=== PATIENT | male | born 1945 | race Caucasian/White ===

== ENCOUNTER 2020-01-07 10:51 | Inpatient (IN) | payer OTHER, MEDICARE, SELFPAY ==
[2020-01-07] VITALS (17 sets, daily range): BP systolic 81–119; BP diastolic 50–84; PULSE 38–123; RESP 12–20; TEMP 35.7–37.1; O2SAT 96–100; BMI 29.0
--- NOTE | 2020-01-07 | ECHO_ITS ---
Patient Info Name: Rolf Taylor Age: 74 years : 1945 Gender: Male Ht: 71 in Wt: 206 lbs BSA: 2.18 m2 HR: 42 bpm BP: 99 / 60 mmHg Heart Rhythm: Bradycardia Technical Quality: Good Exam Date: 01/07/2020 3:29 PM Exam Location: [facility] Pulmonary Patient Status: Inpatient Admit Date: 01/07/2020 Staff Ordering Physician: Shai Cross MD Atmospheric Physicist: Burt Hopkins RDCS Attending Provider: Cisco Melgoza MD Referring Physician: Tay ARTEAGA; Exam Type: CA echo doppler color flow Study Info Indications I48.0 - Paroxysmal atrial fibrillation Complete two-dimensional, color flow and Doppler transthoracic echocardiogram is performed. History/Risk Factors Atrial fibrillation to bradycardia. Summary 1. Left ventricular chamber dimension is normal. 2. Left ventricular systolic function is normal, estimated at 60-65%. 3. There is mildly increased left ventricular wall thickness. 4. The left ventricular diastolic function is normal. 5. The basal inferolateral wall, and mid inferolateral wall are hypokinetic. 6. Left atrial chamber dimension is mildly enlarged. 7. There is mild mitral valve regurgitation. 8. There is mild tricuspid valve regurgitation. 9. There is mild pulmonic regurgitation. Left Ventricle Left ventricular chamber dimension is normal. Left ventricular systolic function is normal, estimated at 60-65%. There is mildly increased left ventricular wall thickness. The left ventricular diastolic function is normal. The basal inferolateral wall, and mid inferolateral wall are hypokinetic. The inferior wall is not visualized. All other graves appear normal. Right Ventricle Right ventricular chamber dimension is normal. Right ventricular systolic function is normal. Left Atria Left atrial chamber dimension is mildly enlarged. Right Atria Right atrial chamber dimension is normal. Atrial Septum Intact interatrial septum visualized by color flow imaging. Aortic Valve The aortic valve is trileaflet. There is mild aortic valve sclerosis. There is no aortic valve stenosis. There is trace aortic valve regurgitation. Pulmonic Valve The pulmonic valve is normal. There is no pulmonic valve stenosis. There is mild pulmonic regurgitation. Mitral Valve The mitral valve has calcified leaflets. There is no mitral valve stenosis. There is mild mitral valve regurgitation. Tricuspid Valve The tricuspid valve leaflets are normal. There is no significant tricuspid valve stenosis. There is mild tricuspid valve regurgitation. No pulmonary hypertension, estimated pulmonary arterial systolic pressure is 26 mmHg. Pericardium/Pleural The pericardium appears normal. There is no pericardial effusion. Inferior Vena Cava Dilated inferior vena cava with >50% collapse upon inspiration consistent with elevated right atrial pressure, 10 mmHg. Aorta The aortic root size at the sinus of Valsalva is normal. The prox ascending aorta size is normal. Left Ventricular Outflow Tract Name Value Normal LVOT 2D LVOT Diameter 2.0 cm LVOT Doppler LVOT Peak Grad
--- NOTE | ~2020-01-07 | XR_ITS ---
EXAMINATION: XR chest 1V portable DATE: 01/07/2020 11:52 INDICATION: Palpitations. TECHNIQUE: A single frontal view of the chest was obtained. COMPARISON: Chest 2 views 10/10/2010, chest CT 01/31/2017 FINDINGS: The chest demonstrates clear lungs without pneumonia, pleural effusion, or pneumothorax. Th e heart size is normal. There are prominent paracardial fat pads. IMPRESSION: 1. No acute cardiopulmonary disease. Reviewed, dictated and finalized at location A.
--- NOTE | 2020-01-07 11:00 | ECG_ITS ---
Measurements Intervals [place] Rate: 129 P: MT: 0 QRS: 36 QRSD: 93 T: 65 QT: 303 QTc: 445 Interpretive Statements ATRIAL FIBRILLATION WITH RAPID VENTRICULAR RESPONSE INCOMPLETE RIGHT BUNDLE BRANCH BLOCK BASELINE ARTIFACT- I, III ABNORMAL ECG Electronically Signed On 01-07-2020 11:03:19 CDT by Bonifacio De Jesus D.O.
[2020-01-07 11:10] LABS: Basophils Absolute Auto 0.1 K/mm3 (0.0-0.1); Basophils Percent Auto 0.6 % (0.2-1.2); Eosinophils Absolute Auto 0.3 K/mm3 (0-0.3); Eosinophils Percent Auto 2.2 % (0-4.4); Hematocrit 49.9 % (42.0-52.0); Hemoglobin 16.4 g/dL (14.0-18.0); Immature Granulocyte Absolute 0.05 K/mm3 (0.00-0.031); Immature Granulocyte Percent A 0.3 % (0-0.5); Lymphocytes Absolute Auto 1.53 K/mm3 (0.9-3.2); Mean Corpuscular HGB Conc 32.9 g/dl (32-36); Mean Corpuscular Hemoglobin 32.2 pg (26-34); Mean Corpuscular Volume 97.8 fl (80-100); Monocytes Percent Auto 6.8 % (2.6-8.5); Neutrophils Absolute Auto 12.2 K/mm3 (1.3-6.7); Neutrophils Percent Auto 80.1 % (45.5-73.1); Platelet Count Result 300 k/mm3 (150-375); Red Cell Distribution Width 13.5 % (11.5-14.5); White Blood Count 15.3 K/mm3 (4.5-10.0)
--- NOTE | 2020-01-07 11:14 | ED.ARRPALP ---
HPI - Arrhythmia/Palpitations General Chief Complaint: Arrhythmia/Palpitations <Mark Galvan PA-C Last Filed: 01/07/20 12:36> Stated Complaint: palpitations <RIGOBERTO Graham Last Filed: 01/07/20 12:36> Time Seen by Provider: 01/07/20 11:05 <RIGOBERTO Graham Last Filed: 01/07/20 12:36> Source: patient <RIGOBERTO Graham Last Filed: 01/07/20 12:36> Mode of arrival: ambulatory <RIGOBERTO Graham Last Filed: 01/07/20 12:36> Limitations: no limitations <RIGOBERTO Graham Last Filed: 01/07/20 12:36> History of Present Illness HPI narrative: Patient is a 74-year-old male who presents with lightheadedness dizziness patient notes that he was up for 2 hours today when he began to have these feelings patient presents with atrial fibrillation denies any history of atrial fibrillation. Patient denies any chest pain. Patient notes that he has been out in the heat off and on over the last several weeks but has been hydrating. Patient notes that he felt fine yesterday and upon waking prior to onset of symptoms. Patient on arrival is in the room in no distress resting comfortably has not taken anything for his symptoms. Patient is followed by primary care and cardiology at [facility]. <Mark Galvan PA-C Last Filed: 01/07/20 12:36> Related Data Home Medications: Home Medications Medication Instructions Recorded Confirmed aspirin [Adult Low Dose Aspirin] 81 mg PO DAILY 01/07/20 atorvastatin [Lipitor] 20 mg PO DAILY 01/07/20 <RIGOBERTO Graham Last Filed: 01/07/20 12:36> Allergies/Adverse Reactions: Allergies Allergy/AdvReac Type Severity Reaction Status Date / Time No Known Allergies Allergy Verified 11/20/17 11:14 <RIGOBERTO Graham Last Filed: 01/07/20 12:36> Review of Systems Review of Systems: All systems reviewed & are unremarkable except as noted in HPI and below <RIGOBERTO Graham Last Filed: 01/07/20 12:36> [facility] Past Medical History Medical History: Medical History (Updated 01/07/20 @ 12:33 by Debbie Saenz MD) Colon cancer Hyperlipidemia <Mark Galvan PA-C - Last Filed: 01/07/20 12:36> Surgical History Surgical History: Surgical History (Updated 01/07/20 @ 11:21 by Mark Galvan PA-C) History of colon resection History of coronary artery stent placement <Mark Galvan PA-C - Last Filed: 01/07/20 12:36> Family History Family History: Family History (Updated 06/24/17 @ 12:01 by DOCTOR UNKNOWN) Sibling Family history of malignant neoplasm of breast in first degree relative Other Family history of cardiovascular disease Family history of coronary artery disease Hypertension <Mark Galvan PA-C - Last Filed: 01/07/20 12:36> Social History Social History: Social History (Updated 01/07/20 @ 11:21 by Mark Galvan PA-C) Smoking status: Current every day smoker Second hand tobacco smoke exposure: Yes Alcohol intake: never <Mark Galvan PA-C - Last Filed: 01/07/20 12:36> Exam Narrative: Exam Narrative: GENERAL: Well-appearing, well-nourished, and in no acute distress. HEAD: Normocephalic, atraumatic. EYES: PERRLA and EOMI. ENT: Nares clear, no rhinorrhea or epistaxis. Mucous membranes moist. Oropharynx without tonsillar hypertrophy exudate or other lesions. NECK: Supple. No adenopathy or masses. No carotid bruits or JVD CHEST: Clear to auscultation. No respiratory distress. No wheezes rales or rhonchi HEART: Irregularly irregular rate and rhythm. No murmur heard. ABDOMEN: Soft, nontender, nondistended, normal active bowel sounds. EXTREMITIES: Normal range of motion. No edema. SKIN: Warm, dry, no rash. NEURO: No focal deficits. Alert and oriented x3. Cranial nerves II through XII grossly intact PSYCH: Normal mood and affect. <Mark Galvan PA-C - Last Filed: 01/07/20 12:36> Course Cour
[2020-01-07] MEDS: SODIUM CHLORIDE 0.9% IV 1,000 ML 999 ML IV CONT (11:18)
[2020-01-07] MEDS: dilTIAZem HCl INJ 25 MG/5 ML VIAL 10 MG IV PUSH (11:18)
[2020-01-07 11:19] LABS: Anion Gap 11.5 mmol/L (7-16); Blood Urea Nitrogen 16 mg/dL (9-20); Calcium 9.2 mg/dL (8.4-10.2); Carbon Dioxide 28 mmol/L (22-30); Chloride 101 mmol/L (98-107); Estimated CRCL calculation 62 ml/min; Estimated Glomerular Filt Rate > 60; Glucose 113 mg/dL (75-110); Potassium 4.5 mmol/L (3.4-5.0); Sodium 136 mmol/L (137-145)
[2020-01-07 11:36] LABS: NT Pro B Type Natriuretic Pept 919 PG/ML (5-100); Troponin I 0.026 ng/mL (0.000-0.034)
--- NOTE | 2020-01-07 12:05 | PC.NURSE ---
After starting diltiazem drip, Pt. heart rate dropped into the 30s-40s, sinus bradycardia. EDP notified. Drip stopped. Placed Pt. on 2L of O2 via nasal cannula per EDP via verbal order readback. Will continue to monitor Pt. heart rate.
--- NOTE | 2020-01-07 14:23 | WPDREHABHP ---
H&P: HPI History of Present Illness Chief complaint: a fib rvr, then bradycardia Narrative: Rolf Taylor is a 74-year-old male with coronary artery disease status post bare metal stent to the right coronary artery in October 2009, hypertension, dyslipidemia, and stage III colon cancer status post partial colectomy and chemotherapy who presented to the emergency department earlier today from home for evaluation of lightheadedness/dizziness. [facility] Past Medical History Medical History (Updated 01/07/20 @ 14:30 by Myrna Hernandes PA-C) Coronary artery disease (~10/2009) Status post bare metal stent to the right coronary artery. Essential hypertension Hyperlipidemia Mild emphysema Noted on prior chest CT. Nephrolithiasis Osteoarthritis Personal history of colon cancer, stage III (~08/2009) Status post right hemicolectomy and chemotherapy. Tuberculosis As a child. Surgical History Surgical History (Updated 01/07/20 @ 14:29 by Myrna Hernandes PA-C) History of coronary artery stent placement (~10/2009) Bare metal stent to right coronary artery. History of right hemicolectomy (~09/2009) History of umbilical hernia repair (~09/2009) Family History Family History Sibling Family history of malignant neoplasm of breast in first degree relative Other Family history of cardiovascular disease Family history of coronary artery disease Hypertension Social History Social History (Updated 01/07/20 @ 14:29 by Myrna Hernandes PA-C) Social History: The patient lives in [place], [place]. Smoking status: Current every day smoker Second hand tobacco smoke exposure: Yes Alcohol intake: never Meds Home Medications and Allergies Home Medications Medication Instructions Recorded Confirmed Type lisinopril 20 See Rx Instructions .ROUTE 10/28/19 Rx mg-hydrochlorothiazide 12.5 mg .COMPLEX #45 tablet tablet aspirin [Adult Low Dose Aspirin] 81 mg PO DAILY 01/07/20 History atorvastatin [Lipitor] 20 mg PO DAILY 01/07/20 History Allergies Allergy/AdvReac Type Severity Reaction Status Date / Time No Known Allergies Allergy Verified 11/20/17 11:14 Vital Signs Vital Signs - 24 hr 01/07/20 11:01 01/07/20 11:07 01/07/20 11:48 Temperature 97.6 F Pulse Rate 123 H 118 H 92 Respiratory Rate 14 Blood Pressure 110/84 107/59 L Pulse Oximetry 96 99 01/07/20 12:00 01/07/20 12:06 01/07/20 12:07 Temperature Pulse Rate 38 L 38 L Respiratory Rate Blood Pressure 119/71 Pulse Oximetry 100 01/07/20 12:45 01/07/20 12:48 Temperature Pulse Rate 55 L 55 L Respiratory Rate 12 Blood Pressure 100/53 L Pulse Oximetry 100 Exam Narrative Exam Narrative: General: HEENT: Normocephalic, atraumatic. PERRL, EOMI. Sclerae anicteric. Oral mucosa moist. Oropharynx clear. Neck: Supple. Respiratory: Lungs are clear to auscultation bilaterally. Cardiovascular: Regular rate and rhythm with S1-S2. No murmur, rub, or gallop. Gastrointestinal: Abdomen is soft, nontender, and nondistended with positive bowel sounds. No organomegaly. Skin: Warm and dry. No rash or lesions on limited exam. Extremities: No cyanosis, clubbing, or edema. Radial and pedal pulses intact. Neurological: Alert. Cranial nerves 2-12 are grossly intact. Speech is clear. No facial asymmetry. No gross focal deficits to casual conversation. Psychiatric: Pleasant and cooperative with normal mood and affect. Judgment and insight intact. H&P: Results Labs Labs: Short CBC 01/07/20 Range/Units 11:01 WBC 15.3 H (4.5-10.0) K/mm3 Hgb 16.4 (14.0-18.0) g/dL Hct 49.9 (42.0-52.0) % Plt Count 300 (150-375) k/mm3 [facility] 01/07/20 11:01 Sodium 136 L Potassium 4.5 Chloride 101 Carbon Dioxide 28 BUN 16 Creatinine 1.00 Glucose 113 H Calcium 9.2 Cardiac Enzymes 01/07/20 Range/Units 11:01 Troponin I 0.0
[2020-01-07 15:23] LABS: Troponin I 0.066 ng/mL (0.000-0.034)
--- NOTE | 2020-01-07 15:26 | PM.CNCAR ---
Assessment and Plan Assessment and plan (1) Essential hypertension: Code(s): I10 - Essential (primary) hypertension Status: Acute Assessment and Plan: at goal (2) Atrial fibrillation with rapid ventricular response: Code(s): I48.91 - Unspecified atrial fibrillation Status: Acute Assessment and Plan: he is now back in sinus bradycardia. He does have a chads Vasc score of 3 given his age, high blood pressure history and coronary artery disease. I did talk to him about the risk benefits alternatives of anticoagulation he is agreeable to proceed. We will start him on enoxaparin 1 milligram/kilogram q.12 hours for now and transition to a DOAC prior to discharge. No SA or AV beni agents will be given. Also no antiarrhythmics will be provided at this point. 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 Armijo as an outpatient. 2D echocardiogram Doppler is ordered. Will check a TSH, free T4 level and magnesium. Will keep NPO after midnight in case angiogram is needed. Repeat EKG in the morning (3) Elevated troponin: Code(s): R79.89 - Other specified abnormal findings of blood chemistry Status: Acute Assessment and Plan: troponins have turned positive. Uncertain this is related to atrial fibrillation with rapid ventricular response or due to underlying coronary disease or the combination there of. Will therefore continue to trend his troponins for now. Echo is ordered. Aspirin to be continued as well as a statin. No beta-jose again due to bradycardia (4) Hyperlipidemia: Code(s): E78.5 - Hyperlipidemia, unspecified Status: Acute Assessment and Plan: continue statin (5) Tobacco abuse: Code(s): Z72.0 - Tobacco use Status: Acute Assessment and Plan: abuse counseling is performed History of Present Illness History of Present Illness Consult date/time: 01/07/20 15:26 Requesting physician: Debbie Saenz MD Consult reason: atrial fibrillation Reason For Visit: a fib rvr, then bradycardia Narrative: date of service 01/07/2020 Reason for admission: Atrial fibrillation, bradycardia History: Patient is a 74-year-old male patient of Dr. Armijo who has a history of coronary disease. He underwent a PCI to a very large RCA in the setting of an acute myocardial infarction in October of 2009. A 4.5 x 9 mm bare metal stent was placed at that time. He had been doing well throughout the years. He has been noticing some occasional palpitations though over the past 6 months to a year. Palpitations would be brief lasting for a few seconds. About 2 weeks ago he was out in the sun for about 3 days straight sweating profusely and became lightheaded. He was shooting skeet and checked his blood pressure and it was 78/54. He called the office and was told to hydrate. He did hydrate and stayed in air conditioning and cooled off and his blood pressure did respond appropriately. Over the past couple weeks he has felt fine. Today however he felt okay in the morning but then took his dog out and became lightheaded. He went back inside and checked his blood pressure and it was 70 systolic and his heart rate was in the 120s. He was hoping it would improve but it never did and he did feel some palpitations at that time. He came to the hospital there for further workup and treatment. In the ER he was found to be in atrial fibrillation with rapid ventricular response. He was given diltiazem and did convert to sinus rhythm but became bradycardic. It should be noted though that he has baseline bradycardia in the 40s and 50s.He otherwise denies any chest pain, shortness breath, syncope, presyncope, paroxysmal nocturnal dyspnea, orthopnea or edema. He currently feels back to normal Review of Systems Review of Systems: All systems reviewed & are unremarkab
[2020-01-07] MEDS: ENOXAPARIN 100 MG/ML SYRINGE 95 MG SUB-Q (17:27)
[2020-01-07 17:46] LABS: Troponin I 0.074 ng/mL (0.000-0.034)
--- NOTE | 2020-01-07 21:30 | PM.IMHP ---
H&P: HPI History of Present Illness Chief complaint: Lightheadedness. Narrative: Rolf Taylor is a 74-year-old male smoker with coronary artery disease status post bare metal stent to the right coronary artery in October of 2009, hypertension, hyperlipidemia, and colon cancer who presented to the emergency department earlier today for evaluation of lightheadedness. Several weeks ago, while out shooting skeet several days in a row, he became lightheaded and when he checked his blood pressure was in the 70s over 50s. Presumably this was due to dehydration as he had been sweating quite a bit while outside, and he was told to hydrate after speaking with his primary care provider. His blood pressure did improve with hydration and staying inside in the air conditioning. Today, however he began feeling lightheaded while he was outside taking his dog out to the bathroom and when he checked his blood pressure it was once again in the 70 systolic with a heart rate in the 120s. This persisted for approximately 2 hours and thus he came into the emergency department where he was found to be in atrial fibrillation with rapid ventricular response. He was given IV diltiazem x1 with rastafarian of sinus bradycardia, which is reportedly his baseline. With further questioning he has noticed a fleeting sensation of fluttering in his chest, maybe a dozen times over the years and he believes he had some palpitations for short period of time today with his lightheadedness. Prior to today, he has no known history of atrial fibrillation. He drinks 3 to 4 cups of coffee per day and denies significant alcohol use. He has no history of obstructive sleep apnea but his reports that he snores quite loudly and in fact the patient has frequently startled himself awake due to feelings of shortness of breath in the middle of the night. He has no history of thyroid disease. Weight has remained stable. He has not had exertional chest pain or shortness of breath. No lower extremity edema or venous thromboembolism. Review of Systems Review of Systems: Narrative: Twelve systems were reviewed with pertinent positives and negatives as per HPI. No fever, chills, or sweats. He denies recent cold and flu symptoms. No recent travel or sick contacts. No nausea, vomiting, or diarrhea. Except as documented, all other systems were reviewed and are negative. [facility] Past Medical History Medical History Coronary artery disease (~10/2009) Status post bare metal stent to the right coronary artery. Essential hypertension Hyperlipidemia Mild emphysema Noted on prior chest CT. Nephrolithiasis Osteoarthritis Personal history of colon cancer, stage III (~08/2009) Status post right hemicolectomy and chemotherapy. Tobacco abuse Tuberculosis As a child. Surgical History Surgical History History of coronary artery stent placement (~10/2009) Bare metal stent to right coronary artery. History of right hemicolectomy (~09/2009) History of umbilical hernia repair (~09/2009) Family History Family History Sibling Family history of malignant neoplasm of breast in first degree relative Family history of cardiovascular disease Family history of coronary artery disease Hypertension Sibling Family history of cardiovascular disease Family history of coronary artery disease Hypertension Mother Family history of cardiovascular disease Family history of coronary artery disease Hypertension Abdominal aortic aneurysm History of blood clots Social History Social History (Updated 01/07/20 @ 22:55 by Myrna Hernandes PA-C) Social History: The patient lives in [place], [place] with his . They have no children together, but he has 2 children from a previous marriage. 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
[2020-01-08] VITALS (7 sets, daily range): BP systolic 114–125; BP diastolic 60–68; PULSE 43–57; RESP 18; TEMP 36.8–37.1; O2SAT 91–97
[2020-01-08] MEDS: ENOXAPARIN 100 MG/ML SYRINGE 95 MG SUB-Q (05:31)
[2020-01-08 07:04] LABS: Basophils Absolute Auto 0.1 K/mm3 (0.0-0.1); Basophils Percent Auto 0.9 % (0.2-1.2); Eosinophils Absolute Auto 0.8 K/mm3 (0-0.3); Eosinophils Percent Auto 9.2 % (0-4.4); Hematocrit 42.5 % (42.0-52.0); Hemoglobin 13.8 g/dL (14.0-18.0); Immature Granulocyte Absolute 0.03 K/mm3 (0.00-0.031); Immature Granulocyte Percent A 0.4 % (0-0.5); Lymphocytes Absolute Auto 1.63 K/mm3 (0.9-3.2); Lymphocytes Percent Auto 19.3 % (18.3-44.2); Mean Corpuscular HGB Conc 32.5 g/dl (32-36); Mean Corpuscular Volume 98.6 fl (80-100); Mean Platelet Volume 10.7 fl (7.4-10.4); Monocytes Absolute Auto 0.7 K/mm3 (0.1-0.6); Monocytes Percent Auto 8.5 % (2.6-8.5); Neutrophils Absolute Auto 5.2 K/mm3 (1.3-6.7); Neutrophils Percent Auto 61.7 % (45.5-73.1); Platelet Count Result 244 k/mm3 (150-375); Red Blood Count 4.31 M/mm3 (4.6-6.20); Red Cell Distribution Width 13.6 % (11.5-14.5); White Blood Count 8.5 K/mm3 (4.5-10.0)
[2020-01-08 07:18] LABS: Anion Gap 5.7 mmol/L (7-16); Blood Urea Nitrogen 20 mg/dL (9-20); Calcium 8.6 mg/dL (8.4-10.2); Carbon Dioxide 29 mmol/L (22-30); Chloride 107 mmol/L (98-107); Estimated CRCL calculation 62 ml/min; Estimated Glomerular Filt Rate > 60; Glucose 93 mg/dL (75-110); Magnesium 2.1 mg/dL (1.6-2.3); Phosphorus 2.6 mg/dL (2.5-4.5); Potassium 4.7 mmol/L (3.4-5.0); Sodium 137 mmol/L (137-145)
[2020-01-08] MEDS: ATORVASTATIN 20 MG TABLET PO (08:23)
[2020-01-08] MEDS: ASPIRIN 81 MG ENTERIC TABLET PO (08:23)
--- NOTE | 2020-01-08 08:37 | ECG_ITS ---
Measurements Intervals [place] Rate: 52 P: 70 [place]: 172 QRS: 23 QRSD: 101 T: 67 QT: 431 QTc: 402 Interpretive Statements SINUS BRADYCARDIA ATRIAL PREMATURE COMPLEX INCOMPLETE RIGHT BUNDLE BRANCH BLOCK BASELINE ARTIFACT- II, III BORDERLINE ECG Electronically Signed On 01-08-2020 10:37:35 CDT by Bonifacio De Jesus D.O.
--- NOTE | 2020-01-08 11:38 | PM.PNCARD ---
Progress Note: A&P Assessment and Plan (1) Essential hypertension: Code(s): I10 - Essential (primary) hypertension Status: Acute Assessment and Plan: at goal (2) Atrial fibrillation with rapid ventricular response: Code(s): I48.91 - Unspecified atrial fibrillation Status: Acute Assessment and Plan: Converted to sinus bradycardia in the emergency room. sinus bradycardia is normal for him. Remains in sinus bradycardia. No symptoms. Chads Vasc score of 3 given his age, high blood pressure history and coronary artery disease. Risk benefits alternatives of anticoagulation discussed. Will start Xarelto 20 mg daily. Echocardiogram 01/07/2020:Left ventricular chamber dimension is normal. Left ventricular systolic function is normal, estimated at 60-65%. There is mildly increased left ventricular wall thickness. The left ventricular diastolic function is normal. The basal inferolateral wall, and mid inferolateral wall are hypokinetic. Left atrial chamber dimension is mildly enlarged. There is mild mitral valve regurgitation. There is mild tricuspid valve regurgitation. There is mild pulmonic regurgitation. EKG personally reviewed reveals sinus bradycardia rate of 52 beats per minute. 1 premature atrial complex noted. Incomplete right bundle branch block. (3) Elevated troponin: Code(s): R79.89 - Other specified abnormal findings of blood chemistry Status: Acute Assessment and Plan: Has a history of coronary artery disease. No ischemic symptoms. As the troponin is mild and flat no evidence of ACS. No ischemic changes on his EKG. Troponin 0.026, 0.066, 0.074. Not ACS. Discussed with Dr. Armijo [id number] 01/08/2020 Continue aspirin and atorvastatin. No beta-jose again due to bradycardia (4) Hyperlipidemia: Qualifiers: Hyperlipidemia type: mixed hyperlipidemia Qualified Code(s): E78.2 - Mixed hyperlipidemia Code(s): E78.5 - Hyperlipidemia, unspecified Status: Acute Assessment and Plan: Continue statin (5) Tobacco abuse: Code(s): Z72.0 - Tobacco use Status: Acute Assessment and Plan: Smoking cessation counseling performed. Additional Plan OK to discharge from cardiac standpoint. See discharge instructions for follow-up. Plan discussed with Dr. Armijo [id number] 01/08/2020. Time Spent With Patient Time with patient: less than 15 minutes Subjective Date/time seen: 01/08/20 11:38 Interval history: Follow-up for: Atrial fibrillation with rapid ventricular response , hyperlipidemia, elevated troponin, tobacco use, hypertension Date of service: 01/08/2020 Subjective: Denies chest pain, pressure, tightness or squeezing. No shortness of breath with exertional activities. No orthopnea or PND. No lightheadedness or palpitations today. Review of Systems Review of Systems: All systems reviewed & are unremarkable except as noted in HPI and below Constitutional: Constitutional: Denies fatigue, Denies headache(s) and Denies weakness Eyes: Eyes: Denies blurry vision ENT: Reports Normal hearing present, Denies headache(s) and Denies neck pain Cardiovascular: Cardiovascular: Denies chest pain and Denies dyspnea Respiratory: Respiratory: Denies dyspnea Gastrointestinal: Gastrointestinal: Denies abdominal pain Genitourinary: Genitourinary: Denies dysuria Musculoskeletal: Musculoskeletal: Denies back pain, Denies neck pain and Denies numbness Integumentary/Breasts: Skin/Breast: Denies dry skin and Denies unusual bruising Neurologic: Reports Normal hearing present, Denies confusion, Denies headache(s), Denies numbness and Denies weakness Psychiatric: Psychiatric: Denies anxiety and Denies confusion Endocrine: Endocrine: Denies fatigue and Denies flushing Hematologic/Lymphatic: Hematologic/Ly
--- NOTE | 2020-01-08 11:59 | P.DS_ITS ---
DS: Admitting Diagnosis Admitting Diagnosis Admitting Diagnosis: Essential (primary) hypertension DS: Discharge Diagnosis Discharge Diagnosis (1) Atrial fibrillation with rapid ventricular response: Code(s): I48.91 - Unspecified atrial fibrillation Status: Acute Assessment and Plan: * Came in with Afib with RVR, now in sinus bradycardia after receiving IV diltiazem in the emergency department. * With a CHADS Vasc score of 3, he has been started on Lovenox 1 mg/kg q.12 hours with transition to Xarleto with discharge. * Echocardiogram showed EF is normal at 60-65%, mildly increased LVH, and diastolic function is normal. * TSH is normal with reflux. * Apnea link was completed showing normal range, but told him he should still follow up with PCP and possibly have outpatient sleep study completed. * Dr. Armijo who is the patients Brilliandeer Lopper did not feel the patient needs further work up at this time and can be discharged to follow up in the office. * The patient understands and agrees with the plan. All questions answered. (2) Elevated troponin: Code(s): R79.89 - Other specified abnormal findings of blood chemistry Status: Acute Assessment and Plan: Patient has a history of coronary artery disease and his troponins were elevated and flat. He is not having any chest pain or shortness of breath symptoms. Cardiology evaluated the patient and feels that he does not need further ischemic workup at this time and elevated troponins most likely secondary to acute atrial fibrillation with RVR on arrival. The patient will follow-up with his turf and grounds supervisor, Aleksander, as an outpatient. (3) Essential hypertension: Code(s): I10 - Essential (primary) hypertension Status: Acute Assessment and Plan: * He has had issues with soft blood pressures for at least the past couple of weeks. * We held his blood pressure medications and it is now at goal. * Will continue to hold this medication upon discharging him follow-up with his turf and grounds supervisor and check his blood pressure 2 times a day. (4) Hyperlipidemia: Qualifiers: Hyperlipidemia type: mixed hyperlipidemia Qualified Code(s): E78.2 - Mixed hyperlipidemia Code(s): E78.5 - Hyperlipidemia, unspecified Status: Acute Assessment and Plan: * Continue statin; LFTs within normal limits. (5) Coronary artery disease: Onset Date: ~10/2009 Code(s): I25.10 - Atherosclerotic heart disease of [place] coronary artery without angina pectoris Status: Acute Assessment and Plan: * With history of bare metal stent to the right coronary artery in 2009. * Continue aspirin and statin ; no beta-jose due to underlying sinus bradycardia. (6) Tobacco abuse: Code(s): Z72.0 - Tobacco use Status: Acute Assessment and Plan: * Smoking cessation is encouraged and was discussed. * He declines the need for nicotine patch. (7) Suspected sleep apnea: Code(s): R29.818 - Other symptoms and signs involving the nervous system Status: Acute Assessment and Plan: * Apnea link Was completed showing within normal range which is not completely exclude him having
--- NOTE | 2020-01-08 11:59 | PM.DS ---
DS: Admitting Diagnosis Admitting Diagnosis Admitting Diagnosis: Essential (primary) hypertension DS: Discharge Diagnosis Discharge Diagnosis (1) Atrial fibrillation with rapid ventricular response: Code(s): I48.91 - Unspecified atrial fibrillation Status: Acute Assessment and Plan: Came in with Afib with RVR, now in sinus bradycardia after receiving IV diltiazem in the emergency department. With a CHADS Vasc score of 3, he has been started on Lovenox 1 mg/kg q.12 hours with transition to Xarleto with discharge. Echocardiogram showed EF is normal at 60-65%, mildly increased LVH, and diastolic function is normal. TSH is normal with reflux. Apnea link was completed showing normal range, but told him he should still follow up with PCP and possibly have outpatient sleep study completed. Dr. Armijo who is the patients Business Unit Leader did not feel the patient needs further work up at this time and can be discharged to follow up in the office. The patient understands and agrees with the plan. All questions answered. (2) Elevated troponin: Code(s): R79.89 - Other specified abnormal findings of blood chemistry Status: Acute Assessment and Plan: Patient has a history of coronary artery disease and his troponins were elevated and flat. He is not having any chest pain or shortness of breath symptoms. Cardiology evaluated the patient and feels that he does not need further ischemic workup at this time and elevated troponins most likely secondary to acute atrial fibrillation with RVR on arrival. The patient will follow-up with his teletype technician, Aleksander, as an outpatient. (3) Essential hypertension: Code(s): I10 - Essential (primary) hypertension Status: Acute Assessment and Plan: He has had issues with soft blood pressures for at least the past couple of weeks. We held his blood pressure medications and it is now at goal. Will continue to hold this medication upon discharging him follow-up with his teletype technician and check his blood pressure 2 times a day. (4) Hyperlipidemia: Qualifiers: Hyperlipidemia type: mixed hyperlipidemia Qualified Code(s): E78.2 - Mixed hyperlipidemia Code(s): E78.5 - Hyperlipidemia, unspecified Status: Acute Assessment and Plan: Continue statin; LFTs within normal limits. (5) Coronary artery disease: Onset Date: ~10/2009 Code(s): I25.10 - Atherosclerotic heart disease of [place] coronary artery without angina pectoris Status: Acute Assessment and Plan: With history of bare metal stent to the right coronary artery in 2009. Continue aspirin and statin ; no beta-jose due to underlying sinus bradycardia. (6) Tobacco abuse: Code(s): Z72.0 - Tobacco use Status: Acute Assessment and Plan: Smoking cessation is encouraged and was discussed. He declines the need for nicotine patch. (7) Suspected sleep apnea: Code(s): R29.818 - Other symptoms and signs involving the nervous system Status: Acute Assessment and Plan: Apnea link Was completed showing within normal range which is not completely exclude him having GAURAV and recommended him following up with primary care provider and possibly needing an outpatient sleep study. (8) Leukocytosis: Code(s): D72.829 - Elevated white blood cell count, unspecified Status: Acute Assessment and Plan: Normalized today. No history or physical exam findings to suggest underlying infection.
== END 2020-01-08 13:12 | disposition home or self-care (01) | DRG 310 ==
LOC: ANHED 12:33 → ANHIMU 13:31
PROVIDERS: Emergency Medicine Emergency Medical Services; Internal Medicine Cardiovascular Disease; Physician Assistant; Admitting Provider Family Medicine; Emergency Provider Emergency Medicine; PCP Family Medicine; Visit Provider Physician Assistant
DX: I48.91 Unspecified atrial fibrillation (principal); E86.0 Dehydration; R79.89 Other specified abnormal findings of blood chemistry; I10 Essential (primary) hypertension; E78.5 Hyperlipidemia, unspecified; I25.10 Atherosclerotic heart disease of native coronary artery without angina pectoris; F17.210 Nicotine dependence, cigarettes, uncomplicated; G47.30 Sleep apnea, unspecified; D72.829 Elevated white blood cell count, unspecified; J43.9 Emphysema, unspecified; Z79.82 Long term (current) use of aspirin; Z79.899 Other long term (current) drug therapy; Z85.038 Personal history of other malignant neoplasm of large intestine; Z95.5 Presence of coronary angioplasty implant and graft
CPT/HCPCS: 36415; 71045; 80048; 83735; 83880; 84100; 84436; 84443; 84484; 85025; 93005; 93306; 94762; 96361; 96365; 99285; A9270; J1650; J7030

== ENCOUNTER 2020-05-06 07:07 | Outpatient (CLI) | payer MEDICARE, OTHER, SELFPAY ==
--- NOTE | ~2020-05-06 | CT_ITS ---
EXAMINATION: CT chest wo con EXAM DATE: 05/06/2020 07:29 INDICATION: R91.1 - Solitary pulmonary nodule. TECHNIQUE: Spiral CT of the chest without contrast. Axial, coronal and sagittal images were reviewe d. Coronal maximum intensity pixel images of chest reviewed. The dose-length product (DLP) for this examination was 193.45 mGy-cm. The exposure was tailored according to patient size (auto mA exposur e control), and iterative reconstruction (ASIR) was used as additional dose reduction technique. Comp arison is made to prior examination from 01/31/2017. FINDINGS: Mild emphysema and hyperinflation. Several tiny pulmonary nodules 3 mm or less, unchanged, noncalcified granulomata. No suspicious pulmonary nodules. There are no pleural or pericardial effus ions. Tracheobronchial tree is patent. There is no mediastinal, hilar or axillary lymphadenopathy . There is no pneumothorax. Heart normal in size. There is mild coronary arterial calcification , arterial sclerosis. Right nephrolithiasis. Probable right hemicolectomy with anastomosis site iden tified, small fat-containing hernia just anterior to this in the midline anterior wall. There is tho racic spondylosis without osteoblastic or osteolytic lesions identified. IMPRESSION: 1. Mild emphysema and hyperinflation. 2. Small granulomata unchanged. Reviewed, dictated and finalized at location A. NCIAL AGENT
== END 2020-05-06 07:08 | disposition home or self-care (01) ==
PROVIDERS: PCP Family Medicine; Visit Provider Nurse Practitioner
DX: R91.8 Other nonspecific abnormal finding of lung field (principal); J43.9 Emphysema, unspecified; I25.10 Atherosclerotic heart disease of native coronary artery without angina pectoris; N20.0 Calculus of kidney; K43.9 Ventral hernia without obstruction or gangrene; M47.814 Spondylosis without myelopathy or radiculopathy, thoracic region
CPT/HCPCS: 71250

== ENCOUNTER → 2020-11-21 00:32 | Outpatient (CLI) | payer MEDICARE, OTHER, SELFPAY ==
[2020-11-21 21:52] LABS: SARS-CoV-2 RNA PCR Negative
== END ==
PROVIDERS: PCP Family Medicine; Visit Provider Internal Medicine Gastroenterology
DX: Z01.812 Encounter for preprocedural laboratory examination (principal); Z20.822 Contact with and (suspected) exposure to COVID-19
CPT/HCPCS: C9803; U0003; U0005

== ENCOUNTER 2020-11-24 02:34 | Day surgery (SDC) | payer OTHER, MEDICARE, SELFPAY ==
[2020-11-15 10:39] VITALS: BMI 29.4
[2020-11-24 07:38] VITALS: BP 131/67; PULSE 49; RESP 18; TEMP 36.3; O2SAT 100; BMI 29.2
[2020-11-24] MEDS: LACTATED RINGERS 1,000 ML 150 ML IV CONT (07:48)
--- NOTE | 2020-11-24 08:10 | PM.HPGS ---
History of Present Illness History of Present Illness Consent: Risks, benefits, and alternatives have been discussed and questions answered. Patient agrees to proceed with procedure. Chief complaint: neoplasm screening, hx colon ca Narrative: Rolf Taylor is a 75 year old male with a history of colon cancer and colon polyps. He had colon cancer resected 10 years ago Review of Systems Review of Systems: All systems reviewed & are unremarkable except as noted in HPI and below PMFSH Past Medical History Medical History Afib COPD (chronic obstructive pulmonary disease) Coronary artery disease (~10/2009) Status post bare metal stent to the right coronary artery. Essential hypertension Hyperlipidemia Leukocytosis Mild emphysema Noted on prior chest CT. Nephrolithiasis Osteoarthritis Personal history of colon cancer, stage III (~08/2009) Status post right hemicolectomy and chemotherapy. Tuberculosis As a child. Surgical History Surgical History History of coronary artery stent placement (~10/2009) Bare metal stent to right coronary artery. History of right hemicolectomy (~09/2009) History of umbilical hernia repair (~09/2009) Family History Family History Sibling Family history of malignant neoplasm of breast in first degree relative Family history of cardiovascular disease Family history of coronary artery disease Hypertension Sibling Family history of cardiovascular disease Family history of coronary artery disease Hypertension Mother Family history of cardiovascular disease Family history of coronary artery disease Hypertension Abdominal aortic aneurysm History of blood clots Social History Social History Social History: The patient lives in [place], [place] with his . They have no children together, but he has 2 children from a previous marriage. 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 He smokes about a pack of cigarettes per day for the last 50+ years. He drinks perhaps 1 beer every 2 to 3 months. No illicit substance use. He designates his as his surrogate decision maker and he wishes to be a full code. Smoking packs per day: 1 Smoking cigarettes per day: 20.0 Years smoked: 50 Smoking pack-years: 50.00 Smoking status: Current every day smoker Tobacco type: cigarettes Second hand tobacco smoke exposure: Yes Alcohol intake: current Alcohol use details: 3X PER YEAR Living arrangements: with family Spiritual care concerns: No Meds Home Medications and Allergies Home Medications Medication Instructions Recorded Confirmed Type rivaroxaban [Xarelto] 20 mg PO DAILY #30 tablet 01/08/20 11/24/20 Rx ipratropium 0.5 mg-albuterol 3 mg 3 ml INHALATION QID PRN #270 ml 05/16/20 11/24/20 Rx (2.5 mg base)/3 mL nebulization soln aspirin 81 mg tablet,delayed 81 mg PO EVERY OTHER DAY 10/31/20 11/24/20 History release lactobacillus combination no.9 4 8,000 mmu cells PO DAILY cap 10/31/20 11/24/20 History billion cell capsule potassium gluconate 595 mg (99 mg) 595 mg PO DAILY 10/31/20 11/24/20 History tablet atorvastatin 20 mg PO HS 11/15/20 11/24/20 History lisinopril-hydrochlorothiazide 0.5 tablet PO DAILY 11/15/20 11/24/20 History Allergies Allergy/AdvReac Type Severity Reaction Status Date / Time grass pollen Allergy Hives Verified 11/24/20 07:36 Vital Signs Vital Signs - 24 hr 11/24/20 07:38 Temperature 36.3 C L Pulse Rate 49 L Respiratory Rate 18 Blood Pressure 131/67 Pulse Oximetry 100 Exam Resp: Auscultation: clear to auscultation bilaterally Cardio: Rate: regular rate Rhythm: regular rhythm GI: GI Palp: Yes Soft to palpation and No Tenderness to palpation present
--- NOTE | 2020-11-24 08:19 | WPDANESEPPF ---
Anes - Initial Pre Proc Eval Procedure: Operation Date: 11/24/20 08:30 Proposed Procedures p Screening Colonoscopy - Jorge Davidson MD Date/Time: 11/24/20 08:19 Surgeon: Jorge Davidson MD Pre Op Diagnosis: neoplasm screening, hx colon ca Patient Data Age: 75 Gender: M Height: 5 ft 10 in Weight: 92.4 kg Last Vital Signs Temp 97.4 F L 11/24/20 07:38 Pulse 49 L 11/24/20 07:38 Resp 18 11/24/20 07:38 BP 131/67 11/24/20 07:38 Pulse Ox 100 11/24/20 07:38 Allergies Allergy/AdvReac Type Severity Reaction Status Date / Time grass pollen Allergy Hives Verified 11/24/20 07:36 Home Medications Medication Instructions Recorded Confirmed Type rivaroxaban [Xarelto] 20 mg PO DAILY #30 tablet 01/08/20 11/24/20 Rx ipratropium 0.5 mg-albuterol 3 mg 3 ml INHALATION QID PRN #270 ml 05/16/20 11/24/20 Rx (2.5 mg base)/3 mL nebulization soln aspirin 81 mg tablet,delayed 81 mg PO EVERY OTHER DAY 10/31/20 11/24/20 History release lactobacillus combination no.9 4 8,000 mmu cells PO DAILY cap 10/31/20 11/24/20 History billion cell capsule potassium gluconate 595 mg (99 mg) 595 mg PO DAILY 10/31/20 11/24/20 History tablet atorvastatin 20 mg PO HS 11/15/20 11/24/20 History lisinopril-hydrochlorothiazide 0.5 tablet PO DAILY 11/15/20 11/24/20 History Patient hx anesthesia problems: none Family hx anesthesia problems: none PMFSH Past Medical History Medical History Afib COPD (chronic obstructive pulmonary disease) Coronary artery disease (~10/2009) Status post bare metal stent to the right coronary artery. Essential hypertension Hyperlipidemia Leukocytosis Mild emphysema Noted on prior chest CT. Nephrolithiasis Osteoarthritis Personal history of colon cancer, stage III (~08/2009) Status post right hemicolectomy and chemotherapy. Tuberculosis As a child. Surgical History Surgical History History of coronary artery stent placement (~10/2009) Bare metal stent to right coronary artery. History of right hemicolectomy (~09/2009) History of umbilical hernia repair (~09/2009) Family History Family History Sibling Family history of malignant neoplasm of breast in first degree relative Family history of cardiovascular disease Family history of coronary artery disease Hypertension Sibling Family history of cardiovascular disease Family history of coronary artery disease Hypertension Mother Family history of cardiovascular disease Family history of coronary artery disease Hypertension Abdominal aortic aneurysm History of blood clots Social History Social History Social History: The patient lives in [place], [place] with his . They have no children together, but he has 2 children from a previous marriage. 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 He smokes about a pack of cigarettes per day for the last 50+ years. He drinks perhaps 1 beer every 2 to 3 months. No illicit substance use. He designates his as his surrogate decision maker and he wishes to be a full code. Smoking packs per day: 1 Smoking cigarettes per day: 20.0 Years smoked: 50 Smoking pack-years: 50.00 Smoking status: Current every day smoker Tobacco type: cigarettes Second hand tobacco smoke exposure: Yes Alcohol intake: current Alcohol use details: 3X PER YEAR Living arrangements: with family Spiritual care concerns: No Anes - Eval Final PreProcedure Day of Procedure 11/24/20 08:19 Patient weight: overweight Heart: regular rate and rhythm Lungs: clear to auscultation Airway: Mallampati scale class II Neurological: alert and oriented Last oral intake: >/= 8 hours ASA classification: III Emergent: no Anesthetic
[2020-11-24 08:40] VITALS: BP 98/58; PULSE 52; RESP 23; O2SAT 96
[2020-11-24 08:50] VITALS: BP 113/53; PULSE 47; RESP 20; O2SAT 96
[2020-11-24 09:00] VITALS: BP 113/55; PULSE 51; RESP 21; O2SAT 98
== END 2020-11-24 09:12 | disposition home or self-care (01) ==
PROVIDERS: PCP Family Medicine; Visit Provider Internal Medicine Gastroenterology
PROC: 0DJD8ZZ Inspection of Lower Intestinal Tract, Via Natural or Artificial Opening Endoscopic (ICD-10-PCS; CPT 45378; principal; 2020-11-24 08:30)
DX: Z12.11 Encounter for screening for malignant neoplasm of colon (principal); K57.30 Diverticulosis of large intestine without perforation or abscess without bleeding; K63.89 Other specified diseases of intestine; Z85.038 Personal history of other malignant neoplasm of large intestine; I48.91 Unspecified atrial fibrillation; J44.9 Chronic obstructive pulmonary disease, unspecified; I25.10 Atherosclerotic heart disease of native coronary artery without angina pectoris; Z95.5 Presence of coronary angioplasty implant and graft; I10 Essential (primary) hypertension; E78.5 Hyperlipidemia, unspecified; Z90.49 Acquired absence of other specified parts of digestive tract; Z98.0 Intestinal bypass and anastomosis status; Z92.21 Personal history of antineoplastic chemotherapy; Z79.01 Long term (current) use of anticoagulants; Z79.82 Long term (current) use of aspirin; F17.210 Nicotine dependence, cigarettes, uncomplicated
CPT/HCPCS: G0105; J2001; J2704; J7120

== ENCOUNTER 2022-02-09 07:52 | Outpatient (CLI) | payer MEDICARE, OTHER, SELFPAY ==
--- NOTE | ~2022-02-09 | NM_ITS ---
EXAMINATION: NM bone scan whole body DATE: 02/09/2022 10:56 INDICATION: Prostate cancer. TECHNIQUE: 24.5 mCi Tc-99m HDP was administered intravenously. Delayed whole-body scintigrams were o btained. COMPARISON: Chest CT 05/06/2020, CT abdomen and pelvis 06/28/2014 FINDINGS: There is increased activity in the knees, feet, and hands, without radiographic comparison, likely osteoarthritis. There is increased activity in the shoulders and sternoclavicular joints, con sistent with osteoarthritis. IMPRESSION: 1. No evidence of metastatic disease. Reviewed, dictated and finalized at location A.
== END 2022-02-09 07:53 | disposition home or self-care (01) ==
LOC: ANHIMG 07:57
PROVIDERS: PCP Family Medicine; Visit Provider Urology
DX: C61 Malignant neoplasm of prostate (principal)
CPT/HCPCS: 78306; A9561

== ENCOUNTER 2022-06-15 08:00 | Outpatient (CLI) | payer MEDICARE, OTHER, SELFPAY ==
--- NOTE | ~2022-06-15 | CT_ITS ---
EXAMINATION: CT diagnostic chest wo con DATE: 06/15/2022 08:44 INDICATION: Solitary pulmonary nodule, history of colon and prostate cancer TECHNIQUE: Computed tomography (CT) of the chest was performed without intravenous contrast. The dose -length product (DLP) was 195.41 mGy-cm. Automated exposure control and iterative reconstruction tech [employer] were employed. COMPARISON: 05/06/2020 FINDINGS: There is a new 7 mm nodule in the right lower lobe on image 91. Stable left lung nodules me asure up to 3 mm in the lower lobe. There is mild emphysema. No pleural effusion or pneumothorax. No pathologically enlarged thoracic lymph nodes are identified. The heart size is normal. There is moder ate thoracic spondylosis. There are nonobstructing stones of the right kidney upper pole. There is a 9 mm hemorrhagic cyst of the right kidney. There is an midline epigastric hernia containing fat. IMPRESSION: 1. New indeterminate 7 mm nodule of the right lower lobe. Follow-up CT in three months is recommended . Additional stable pulmonary nodules are consistent with old granulomatous disease. 2. Mild emphysema. Reviewed, dictated and finalized at location B. IOLOGY ASSOCIATE IMPRESSION: 1. New indeterminate 7 mm nodule of the right lower lobe. Follow-up CT in three months is recommended. Additional stable pulmonary nodules are consistent with old granulomatous disease. 2. Mild emphysema.
== END 2022-06-15 08:01 | disposition home or self-care (01) ==
PROVIDERS: PCP Family Medicine; Visit Provider Nurse Practitioner
DX: R91.1 Solitary pulmonary nodule (principal); J43.9 Emphysema, unspecified
CPT/HCPCS: 71250

== ENCOUNTER 2022-08-23 12:24 | Outpatient (CLI) | payer MEDICARE, OTHER, SELFPAY ==
--- NOTE | ~2022-08-23 | CT_ITS ---
EXAMINATION: CT diagnostic chest wo con DATE: 08/23/2022 12:53 INDICATION: Follow-up of new indeterminate 7 mm right lower lobe pulmonary nodule noted on 06/15/2022 CT chest TECHNIQUE: Computed tomography (CT) of the chest was performed without intravenous contrast. Automate d exposure control and iterative reconstruction technique were employed. Exam dose: 151.36 mGy-cm to josselyn exam DLP. COMPARISON: 06/15/2022 CT chest FINDINGS: 6 mm right lower lobe pulmonary nodule with attenuation up to 306 Hounsfield units, most co nsistent with calcified right lower lobe pulmonary granuloma. Small right greater fissure node. Mild bilateral apical scarring. Mild emphysematous changes of the lungs. No pulmonary infiltrate or consolidation. No significant new or developing pulmonary mass density. Aortic, great vessel and coronary artery calcification. No thoracic aortic aneurysm. Normal heart siz e. No pericardial or pleural effusion. No hilar or mediastinal mass lesion or lymphadenopathy. Normal morphology of the adrenal glands. Right nephrolithiasis. Degenerative disc disease in lower cervical spine. Degenerative spurring of the thoracic spine. No tapia spicious osteolytic or osteoblastic lesions are noted. IMPRESSION: 6 mm right lower lobe calcified pulmonary granuloma Mild emphysema Reviewed, dictated and finalized at Location A. Reviewed, dictated and finalized at location L. TECHNICIAN
== END 2022-08-23 12:25 | disposition home or self-care (01) ==
PROVIDERS: PCP Family Medicine; Visit Provider Nurse Practitioner
DX: R91.1 Solitary pulmonary nodule (principal); J43.9 Emphysema, unspecified
CPT/HCPCS: 71250

== ENCOUNTER 2023-05-08 09:34 | Outpatient (CLI) | payer MEDICARE, OTHER, SELFPAY ==
[2023-05-08 12:04] LABS: Basophils Absolute Auto 0.1 K/mm3 (0.0-0.1); Basophils Percent Auto 0.8 % (0.2-1.2); Eosinophils Absolute Auto 0.6 K/mm3 (0-0.3); Eosinophils Percent Auto 7.6 % (0-4.4); Hematocrit 44.1 % (42.0-52.0); Hemoglobin 13.6 g/dL (14.0-18.0); Immature Granulocyte Absolute 0.02 K/mm3 (0.00-0.031); Immature Granulocyte Percent A 0.3 % (0-0.5); Lymphocytes Absolute Auto 0.61 K/mm3 (0.9-3.2); Lymphocytes Percent Auto 7.9 % (18.3-44.2); Mean Corpuscular HGB Conc 30.8 g/dl (32-36); Mean Corpuscular Hemoglobin 31.9 pg (26-34); Mean Corpuscular Volume 103.3 fl (80-100); Mean Platelet Volume 10.2 fl (7.4-10.4); Monocytes Absolute Auto 0.7 K/mm3 (0.1-0.6); Monocytes Percent Auto 9.5 % (2.6-8.5); Neutrophils Absolute Auto 5.8 K/mm3 (1.3-6.7); Neutrophils Percent Auto 73.9 % (45.5-73.1); Platelet Count Result 317 k/mm3 (150-375); Red Blood Count 4.27 M/mm3 (4.6-6.20); Red Cell Distribution Width 14.4 % (11.5-14.5); White Blood Count 7.8 K/mm3 (4.5-10.0)
[2023-05-08 12:19] LABS: Alanine Aminotransferase 26 U/L (6-50); Albumin Level 3.9 g/dL (3.5-5.1); Alkaline Phosphatase 126 U/L (38-126); Anion Gap 6 mmol/L (8-16); Aspartate Amino Transferase 34 U/L (17-59); Bilirubin,Total 0.6 mg/dL (0.2-1.3); Blood Urea Nitrogen 17 mg/dL (9-20); Calcium 9.5 mg/dL (8.4-10.2); Carbon Dioxide 29 mmol/L (22-30); Chloride 103 mmol/L (98-107); Estimated Glomerular Filt Rate > 60; Glucose 108 mg/dL (65-110); Sodium 138 mmol/L (137-145)
[2023-05-08 12:40] LABS: Hemoglobin A1C 5.7 % (<5.7)
== END 2023-05-08 09:35 | disposition home or self-care (01) ==
LOC: ANHGOSHLAB 09:36
PROVIDERS: PCP Family Medicine; Visit Provider Nurse Practitioner Family
DX: Z00.00 Encounter for general adult medical examination without abnormal findings (principal); R73.03 Prediabetes; E53.8 Deficiency of other specified B group vitamins; I48.91 Unspecified atrial fibrillation; R53.83 Other fatigue; Z13.29 Encounter for screening for other suspected endocrine disorder
CPT/HCPCS: 36415; 80053; 82607; 83036; 84443; 85025

== ENCOUNTER → 2023-07-30 09:08 | Outpatient (REF) | payer MEDICARE, OTHER, SELFPAY | LOC: ANHLAB 09:08 | PROVIDERS: PCP Family Medicine; Visit Provider Plastic Surgery | DX: C44.92 Squamous cell carcinoma of skin, unspecified (principal) | CPT/HCPCS: 88305 ==

== ENCOUNTER 2024-02-27 09:27 | Emergency (ER) | payer MEDICARE, OTHER, SELFPAY ==
[2024-02-27 09:39] VITALS: BP 118/61; PULSE 52; RESP 18; TEMP 36.2; O2SAT 99
--- NOTE | 2024-02-27 09:47 | ED.GENADULT ---
HPI - General Adult General Chief complaint: Ear Stated complaint: ear bleeding and hearig difficulty Time Seen by Provider: 02/27/24 09:47 Source: patient, RN notes reviewed and old records reviewed Mode of arrival: ambulatory Limitations: no limitations History of Present Illness HPI narrative: 78-year-old male to [facility] with complaint of hearing loss to right ear. Patient reports that last night after his shower he cleaned his ears with Q-tips without complication. Patient reports waking up in the middle of the night with right-sided hearing loss and blood draining from right ear. Patient denies recent illness, pain, prior injury to right ear. patient resting in exam room without any signs of acute distress. Respirations even and nonlabored. Related Data Home Medications Medication Instructions Recorded Confirmed aspirin 81 mg tablet,delayed 81 mg PO EVERY OTHER DAY 10/31/20 02/27/24 release (Adult Low Dose Aspirin) lactobacillus combination no.9 4 8,000 mmu cells PO DAILY 10/31/20 02/27/24 billion cell capsule (Adult 50 Plus Probiotic) potassium gluconate 595 mg (99 mg) 595 mg PO DAILY 10/31/20 02/27/24 tablet tamsulosin 0.4 mg capsule 0.4 mg PO DAILY 05/07/22 02/27/24 cholecalciferol (vitamin D3) 25 25 mcg PO DAILY 05/08/23 02/27/24 mcg (1,000 unit) capsule Allergies Allergy/AdvReac Type Severity Reaction Status Date / Time grass pollen Allergy Hives Verified 10/30/23 09:01 Review of Systems Review of Systems: All systems reviewed & are unremarkable except as noted in HPI and below Constitutional: Constitutional: Reports no additional constitutional complaints Eyes: Eyes: Reports no additional eye complaints ENT: Reports as per HPI, Denies otalgia and Reports other (right sided hearing loss and bleeding from ear) Cardiovascular: Cardiovascular: Reports no additional cardiovascular complaints, Denies chest pain and Denies dyspnea Respiratory: Respiratory: Reports no additional respiratory complaints, Denies cough and Denies dyspnea Musculoskeletal: Musculoskeletal: Reports no additional musculoskeletal complaints Neurologic: Reports system reviewed and no additional complaints, except as documented Psychiatric: Psychiatric: Reports no additional psychiatric complaints PMFSH Past Medical History Medical History Afib COPD (chronic obstructive pulmonary disease) Coronary artery disease (~10/2009) Status post bare metal stent to the right coronary artery. Essential hypertension Fatigue Hyperlipidemia [place] Leukocytosis Mild emphysema Noted on prior chest CT. Nephrolithiasis Osteoarthritis Personal history of colon cancer, stage III (~08/2009) Status post right hemicolectomy and chemotherapy. Prostate cancer (~01/2022) Tuberculosis As a child. Surgical History Surgical History History of coronary artery stent placement (~10/2009) Bare metal stent to right coronary artery. History of right hemicolectomy (~09/2009) History of umbilical hernia repair (~09/2009) Family History Family History Sibling Family history of malignant neoplasm of breast in first degree relative Family history of cardiovascular disease Family history of coronary artery disease Hypertension Sibling Family history of cardiovascular disease Family history of coronary artery disease Hypertension Mother Family history of cardiovascular disease Family history of coronary artery disease Hypertension Abdominal aortic aneurysm History of blood clots Social History Social History Social History: The patient lives in [place], [place] with his . They have no children together, but he has 2 children from a previous marriage. 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
== END 2024-02-27 10:22 | disposition home or self-care (01) ==
PROVIDERS: Emergency Provider Nurse Practitioner Family; PCP Family Medicine
DX: H72.91 Unspecified perforation of tympanic membrane, right ear (principal); I48.91 Unspecified atrial fibrillation; J44.9 Chronic obstructive pulmonary disease, unspecified; I25.10 Atherosclerotic heart disease of native coronary artery without angina pectoris; Z95.5 Presence of coronary angioplasty implant and graft; I10 Essential (primary) hypertension; E78.5 Hyperlipidemia, unspecified; M19.90 Unspecified osteoarthritis, unspecified site; Z85.038 Personal history of other malignant neoplasm of large intestine; Z85.46 Personal history of malignant neoplasm of prostate; Z90.49 Acquired absence of other specified parts of digestive tract; Z79.82 Long term (current) use of aspirin
CPT/HCPCS: 99213; G0463

== ENCOUNTER 2024-06-01 13:42 | Outpatient (CLI) | payer MEDICARE, OTHER, SELFPAY ==
--- NOTE | ~2024-06-01 | CT_ITS ---
EXAMINATION: CT chest abdomen pelvis w con DATE: 06/01/2024 14:01 INDICATION: Abnormal weight loss. TECHNIQUE: Computed tomography (CT) of the chest, abdomen, and pelvis was performed with 100 mL Omnip aque 350 intravenous contrast. Automated exposure control and iterative reconstruction technique were employed. The dose-length product was 612.48 mGy-cm. COMPARISON: Chest CT 08/23/2022 FINDINGS: CHEST CT: There is mild emphysema. There are few chronic nodules in the lungs measuring up to 5 mm, likely marta gn. No pleural effusion. The heart size is normal. No pericardial effusion. There are coronary artery calcifications. There is severe thoracic spondylosis. ABDOMEN/PELVIS CT: There is a 4 mm cyst in the liver. The gallbladder, spleen, pancreas, and adrenal glands are normal. There is cortical thinning of the kidneys. There are cysts in the kidneys measuring up to 2.3 cm on t he right. There are 4 mm and 2 mm stones in right kidney. There is prominent fat in the inguinal randi ls that may be hernias. There are brachytherapy seeds in the prostate. There is diverticulosis of the colon without evidence of diverticulitis. There are changes of right hemicolectomy. There is a supra umbilical ventral hernia containing fat. There are no dilated loops of bowel. There is a 3.2 cm fusif orm aneurysm of infrarenal aorta. There is calcified atherosclerosis of the aorta and many of the oth er arteries. There is severe lumbar spondylosis. Lumbar dextroscoliosis is noted. IMPRESSION: 1. Supraumbilical ventral hernia containing fat. 2. 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 3. Mild emphysema. Reviewed, dictated and finalized at location A. CTOR TRADE
== END 2024-06-01 13:43 | disposition home or self-care (01) ==
PROVIDERS: PCP Family Medicine; Visit Provider Family Medicine
DX: I71.43 Infrarenal abdominal aortic aneurysm, without rupture (principal); K43.9 Ventral hernia without obstruction or gangrene; J43.9 Emphysema, unspecified; R63.4 Abnormal weight loss
CPT/HCPCS: 71260; 74177; Q9967

== ENCOUNTER 2025-03-11 23:26 | Inpatient (IN) | payer OTHER, SELFPAY ==
--- NOTE | ~2025-03-11 | XR_ITS ---
Examination: XR chest 1V portable Clinical History: chest pain Comparison: 01/14/2020 Technique: Portable AP Findings: Heart size normal. Lungs clear. No acute bony abnormality. IMPRESSION: 1. No acute cardiopulmonary findings given portable technique. Reviewed, dictated and finalized at location R.
--- NOTE | 2025-03-11 23:27 | ECG_ITS ---
Test Date: 2025-03-11 23:34:51 Measurements Intervals [place] Rate: 45 P: 79 FL: 151 QRS: 38 QRSD: 98 T: 93 QT: 435 QTc: 379 Interpretive Statements SINUS BRADYCARDIA T-WAVE ABNORMALITY, CONSIDER LATERAL ISCHEMIA ABNORMAL ECG No previous ECG available for comparison Electronically Signed On 03-12-2025 07:40:08 CDT by Dheeraj Armijo M.D.
[2025-03-11 23:31] VITALS: BP 141/66; PULSE 43; RESP 20; TEMP 36.7; O2SAT 97
[2025-03-11 23:38] VITALS: O2SAT 98
[2025-03-11 23:41] VITALS: PULSE 46
[2025-03-11 23:50] LABS: Hematocrit 42.6 % (42.0-52.0); Hemoglobin 13.4 g/dL (14.0-18.0); Immature Granulocyte Percent A 0.3 % (0-0.5); Lymphocytes Absolute Auto 1.10 K/mm3 (0.9-3.2); Mean Corpuscular HGB Conc 31.5 g/dl (32-36); Mean Corpuscular Hemoglobin 30.9 pg (26-34); Mean Corpuscular Volume 98.2 fl (80-100); Nucleated Red Blood Cells Absolute Auto 0.000 K/mm3 (0.0-0.012); Nucleated Red Blood Cells Perc 0.0 % (0.0-0.2); Platelet Count Result 273 k/mm3 (150-375); Red Blood Count 4.34 M/mm3 (4.6-6.20); White Blood Count 10.2 K/mm3 (4.5-10.0)
[2025-03-12] VITALS (28 sets, daily range): BP systolic 99–137; BP diastolic 48–79; PULSE 40–55; RESP 12–21; TEMP 36.7–36.9; O2SAT 95–100; BMI 24.8
--- NOTE | 2025-03-12 | ECHO_ITS ---
Patient Info Name: Rolf Taylor Age: 79 years : 1945 Gender: Male Ht: 70 in Wt: 173 lbs BSA: 1.98 m2 HR: 43 bpm BP: 103 / 52 mmHg Heart Rhythm: Sinus Rhythm Technical Quality: Good Exam Date: 03/12/2025 2:57 PM Patient Status: I Admit Date: 03/12/2025 Exam Type: CA echo doppler color flow Complete two-dimensional, color flow and Doppler transthoracic echocardiogram is performed. Staff Referring Physician: Eliecer Mueller Site Medical Director: Marcela Nick Attending Provider: Hina Montiel DO Summary 1. Complete two-dimensional, color flow and Doppler transthoracic echocardiogram is performed. 2. Mild left ventricular systolic dysfunction, posterior akinesia, inferior hypokinesia, ejection fraction 50%. 3. Moderate left atrial dilation. 4. Sclerotic aortic valve with adequate leaflet separation. 5. Mild MR. Left Ventricle Left ventricular chamber dimension is mildly enlarged. Left ventricular systolic function is mildly reduced, estimated at 50-55. The left ventricular diastolic function is grade I diastolic dysfunction. Right Ventricle Right ventricular chamber dimension is normal. Left Atria Left atrial chamber dimension is moderately enlarged. Right Atria Right atrial chamber dimension is normal. Aortic Valve The aortic valve is trileaflet. There is mild aortic valve sclerosis. Pulmonic Valve The pulmonic valve is normal. Mitral Valve The mitral valve has normal leaflets. There is mild mitral valve regurgitation. The mitral valve annulus is mildly calcified. Tricuspid Valve The tricuspid valve leaflets are normal. Pericardium/Pleural The pericardium appears normal. Aorta The aortic root size at the sinus of Valsalva is normal. Left Ventricular Outflow Tract Name Value Normal LVOT 2D LVOT Diameter 2.0 cm LVOT Doppler LVOT Peak Velocity 91 cm/s LVOT Peak Gradient 3 mmHg LVOT Mean Gradient 2 mmHg LVOT VTI 23 cm LVOT VTI/AV VTI Ratio 0.6 LVOT Stroke Volume 74 ml LVOT CO 3.2 l/min LVOT CI 1.6 l/min/m2 Pulmonic Valve Name Value Normal RVOT Doppler RVOT Peak Velocity 56 cm/s RVOT Peak Gradient 1 mmHg PV Doppler PV Peak Velocity 99 cm/s PV Peak Gradient 4 mmHg Mitral Valve Name Value Normal MV Diastolic Function MV E Peak Velocity 52 cm/s MV A Peak Velocity 69 cm/s MV E/A 0.7 MV Decel Time (PW) 341 ms MV Annular TDI MV E/e' (Septal) 6.0 MV E/e' (Lateral) 3.9 MV E/e' (Average) 5.0 Tricuspid Valve Name Value Normal TV Regurgitation Doppler TR Peak Velocity 285 cm/s TR Peak Gradient 32 mmHg Aortic Valve Name Value Normal AV Doppler AV Peak Velocity 177 cm/s AV Peak Gradient 12 mmHg AV Mean Gradient 6 mmHg AV VTI 40 cm AV Area (Cont Eq VTI) 1.8 cm2 >=3.0 AV Area (Cont Eq Travis) 1.7 cm2 AV DI (Travis) 0.51 AV Regurgitation 2D LVOT Area 3.2 cm2 Ventricles Name Value Normal LV Dimensions 2D/MM IVS Diastolic Thickness (2D) 1.1 cm 0.6-1.0 LVID Diastole (2D) 4.5 cm 4.2-5.8 LVIW Diastolic Thickness (2D) 1.1 cm 0.6-1.0 LVID Systole (2D) 3.1 cm 2.5-4.0 LVOT Diameter 2.0 cm LV Mass (2D Cubed) 179.34 g 88.00-224.00 LV Mass Index (2D Cubed) 91 g/m2 49-115 Relative Wall Thickness (2D) 0.48 <=0.42 LV Fractional Shortening/Ejection Fraction 2D/MM LV Fractional Shortening (2D) 32 % 25-43 LV EF (2D Teichholz) 60 % LV Diastolic Volume (4C MOD) 153 ml LV EF (4C MOD) 69 % LV Diastolic Volume (2C MOD) 126 ml LV EF (2C MOD) 53 % LV Diastolic Volume (BP MOD) 141 ml 62-150 LV Diastolic Volume Index (BP MOD) 72 ml/m2 34-74 LV Systolic Volume (BP MOD) 55 ml 21-61 LV Systolic Volume Index (BP MOD) 28 ml/m2 11-31 LV EF (BP MOD) 61 % 52-72 LV Diastolic Length (4C) 8.3 cm LV Systolic Length (4C) 6.5 cm LV Stroke Volume (4C MOD) 106 ml Atria Name Value Normal LA Dimensions LA Volume (4C A-L) 91 ml LA Volume (BP A-L) 80 ml RA Dimensions RA Systolic Major [place] Length (4C) 4.7 cm 2.1-2.7 RA Area (4C) 13.2 cm2 <=18.0 Report Signatures
[2025-03-12 00:01] LABS: INR 1.0; Prothrombin Time 12.9 Seconds (11.1-14.7)
[2025-03-12 00:02] LABS: Partial Thromboplastin Time 44.0 Seconds (22.3-36.8)
[2025-03-12 00:03] LABS: Alanine Aminotransferase 19 U/L (6-50); Albumin Level 3.9 g/dL (3.5-5.1); Alkaline Phosphatase 133 U/L (38-126); Anion Gap 4 mmol/L (4-12); Aspartate Amino Transferase 34 U/L (17-59); Bilirubin,Total 0.5 mg/dL (0.2-1.3); Blood Urea Nitrogen 16 mg/dL (9-20); Calcium 9.1 mg/dL (8.4-10.2); Carbon Dioxide 28 mmol/L (22-30); Chloride 105 mmol/L (98-107); Estimated CRCL calculation 59 ml/min; Estimated Glomerular Filt Rate > 60; Glucose 116 mg/dL (65-110); Lipase 62 U/L (23-300); Potassium 4.1 mmol/L (3.4-5.0); Sodium 137 mmol/L (137-145); Total Protein 6.3 g/dL (6.3-8.2)
--- NOTE | 2025-03-12 00:08 | ED.GENADULT ---
HPI - General Adult General Chief complaint: Chest Pain <Mandy Rubalcava APRN - Last Filed: 03/12/25 02:21> Stated complaint: chest pain <Mandy Rubalcava APRN - Last Filed: 03/12/25 02:21> Time Seen by Provider: 03/11/25 23:39 <Mandy Rubalcava APRN - Last Filed: 03/12/25 02:21> History of Present Illness HPI narrative: Patient is a 79-year-old male who presents to the ER with midsternal chest pain that started yesterday. He reports he has a cardiac application on his phone that told him he was in atrial fibrillation. Patient reports when his pain started yesterday he thought he was experiencing heartburn. He reports the pain does not change according to his position. Patient denies any lower extremity edema, new onset shortness of breath, acute cough, recent fevers or back pain. He reports he is a cigarette smoker. Patient reports he has a history of high blood pressure, colon cancer, prostate cancer, skin cancer, and atrial fibrillation. He reports he takes Xarelto every other day, which is managed by his associate financial analyst. <Mandy Rubalcava APRN - Last Filed: 03/12/25 02:21> Related Data Home medications: Home Medications ?Medication ?Instructions ?Recorded ?Confirmed ?Last Taken ?Type aspirin 81 mg tablet,delayed 81 mg PO EVERY OTHER DAY 10/31/20 03/12/25 03/10/25 22:00 History release (Adult Low Dose Aspirin) 81 mg lactobacillus combination no.9 4 8,000 mmu cells PO DAILY 10/31/20 03/12/25 11/23/20 History billion cell capsule (Adult 50 8000 mmu cells Plus Probiotic) potassium gluconate 595 mg (99 mg) 595 mg PO DAILY 10/31/20 03/12/25 03/10/25 22:00 History tablet 595 mg tamsulosin 0.4 mg capsule 0.4 mg PO DAILY 05/07/22 03/12/25 03/11/25 06:00 History 0.4 mg <Mandy Rubalcava APRN - Last Filed: 03/12/25 02:21> Allergies/adverse reactions: Allergies Allergy/AdvReac Type Severity Reaction Status Date / Time grass pollen Allergy Hives Verified 03/11/25 23:35 <Mandy Rubalcava, CORK MOLDER - Last Filed: 03/12/25 02:21> Review of Systems Review of Systems: All systems reviewed & are unremarkable except as noted in HPI and below <Mandy Rubalcava APRN - Last Filed: 03/12/25 02:21> [facility] Past Medical History Medical History: Medical History Paroxysmal A-fib Prediabetes BPH loc w/o ur obs/LUTS Coronary artery disease (~10/2009) Status post bare metal stent to the right coronary artery. Meralgia paresthetica of left side Squamous cell skin cancer Chronic venous insufficiency of lower extremity Infrarenal abdominal aortic aneurysm (AAA) without rupture Keloid Prostate cancer (~01/2022) Incisional hernia COPD (chronic obstructive pulmonary disease) Tuberculosis As a child. Osteoarthritis Nephrolithiasis Mild emphysema Noted on prior chest CT. Essential hypertension Personal history of colon cancer, stage III (~08/2009) Status post right hemicolectomy and chemotherapy. Hyperlipidemia <Mandy Rubalcava, CORK MOLDER - Last Filed: 03/12/25 02:21> Surgical History Surgical History: Surgical History History of umbilical hernia repair (~09/2009) History of right hemicolectomy (~09/2009) History of coronary artery stent placement (~10/2009) Bare metal stent to right coronary artery. <Mandy Rubalcava APRN - Last Filed: 03/12/25 02:21> Family History Family History: Family History Sibling Family history of malignant neoplasm of breast in first degree relative Family history of cardiovascular disease Family history of coronary artery disease Hypertension Sibling Family history of cardiovascular disease Family history of coronary artery disease Hypertension Mother Family history of cardiovascular disease Family history of coronary artery disease Hypertension Abdominal aortic aneurysm History of blood clots <Mandy Rubalcava APRN - Last Filed: 03/12/25 02:21> Social History Social History: Social History Social History: The patient lives in [place], [place] with his . They have no children together, but he has 2 children from a previous marriage. 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 He smokes about a pack of cigarettes per day for the last 50+ years. He drinks perhaps 1 beer every 2 to 3 months. No illicit substance use. He designates his as his surrogate decision maker and he wishes to be a full code. Smoking packs per day: 1 Smoking cigarettes per day: 20.0 Years smoked: 50 Smoking pack-years: 50.00 Smoking status: Current every day smoker Tobacco type: cigarettes Second hand tobacco smoke exposure: Yes Alcohol intake: current Drinks per week: 1 Alcohol use details: 3X PER YEAR Substance use: never Substance use type: does not use Lack of Transportation: No Lack of Food: Never True Current Housing: I Have Housing Concerned About Future Housing: No Difficulty Paying Gas/Electric Bills: No Difficulty Paying for Meds: No Currently Unemployed: No Education: Bachelor's Degree Difficulty w/ Childcare or Family Care: No Living arrangements: with family Occupation/Education: retired Gender identity (if verbalized by the patient): Male Sexual Orientation (if Verbalized by the Patient): Straight or Heterosexual Spiritual care concerns: No Agree to blood products: Yes <Mandy Rubalcava, CORK MOLDER - Last Filed: 03/12/25 02:21> Exam Narrative: GENERAL: Well appearing, well-nourished, non-toxic, in no acute distress. HEAD: Normocephalic, atraumatic. NECK: Supple. No adenopathy, no masses. RESPIRATORY: Airway patent, respirations nonlabored. + rhonchi lower bases, + wheezing all lobes CARDIOVASCULAR: Bradycardia, regular rhythm. Peripheral pulses 2+ and equal bilaterally. Mild bilateral lower extremity edema ABDOMINAL: Soft, nontender, nondistended, no hepatosplenomegaly. Normoactive BS. MUSCULOSKELETAL: Moves all extremities. Strength/ROM intact without gross deformities. SKIN: Warm, dry, normal color. No rashes. NEURO: A&O X3. Speech clear. Cranial nerves II-XII intact. No ataxic movements. PSYCHIATRIC: Appropriate mood and affect. Normal interaction. <Mandy Rubalcava, CORK MOLDER - Last Filed: 03/12/25 02:21> Course COMMODITY SUPERVISOR/PA Physician Supervision This visit was performed by both a physician and an APC. I performed all aspects of the MDM as documented. <Eliecer Mueller MD - Last Filed: 03/12/25 06:32> Vital Signs Vital signs: Vital Signs Temperature 36.7 C 03/11/25 23:31 Pulse Rate 43 L 03/11/25 23:31 Respiratory Rate 20 03/11/25 23:31 Blood Pressure 141/66 H 03/11/25 23:31 Pulse Oximetry 97 03/11/25 23:31 Temperature 36.7 C 03/12/25 04:14 Pulse Rate 43 L 03/12/25 04:14 Respiratory Rate 12 03/12/25 04:14 Blood Pressure 119/57 L 03/12/25 04:14 Pulse Oximetry 99 03/12/25 04:14 Oxygen Delivery Room Air 03/12/25 04:00 <Mandy Rubalcava APRN - Last Filed: 03/12/25 02:21> Vital Signs Temperature 36.7 C 03/11/25 23:31 Pulse Rate 43 L 03/11/25 23:31 Respiratory Rate 20 03/11/25 23:31 Blood Pressure 141/66 H 03/11/25 23:31 Pulse Oximetry 97 03/11/25 23:31 Temperature 36.7 C 03/12/25 04:14 Pulse Rate 43 L 03/12/25 04:14 Respiratory Rate 12 03/12/25 04:14 Blood Pressure 119/57 L 03/12/25 04:14 Pulse Oximetry 99 03/12/25 04:14 Oxygen Delivery Room Air 03/12/25 04:00 <Eliecer Mueller MD - Last Filed: 03/12/25 06:32> Medical Decision Making MDM Narrative Medical decision making narrative: Patient is a 79-year-old male who presents to the ER with midsternal chest pain that started yesterday. He reports he has a cardiac application on his phone that told him he was in atrial fibrillation. Patient reports when his pain started yesterday he thought he was experiencing heartburn. He reports the pain does not change according to his position. Patient denies any lower extremity edema, new onset shortness of breath, acute cough, recent fevers or back pain. He reports he is a cigarette smoker. Patient reports he has a history of high blood pressure, bradycardia, colon cancer, prostate cancer, skin cancer, and atrial fibrillation. He reports he takes Xarelto every other day, which is managed by his associate financial analyst. Labs Ordered: CBC, CMP, troponin, D-dimer, proBNP, lipase, PTT, INR Imaging Ordered: Chest x-ray Medications Ordered: Morphine 2 mg IV Results: Patient's CBC indicates patient has a white blood cell count of 10.2, RBCs of 4.34, hemoglobin of 13.4. His coags indicate an APTT of 44.0 seconds. Patient's D-dimer was 0.31. His CMP indicates a glucose of 116, alk-phos of 133. Patient's initial troponin is 2.5. His proBNP was 6620. Patient's x-ray indicates no acute abnormalities. Diagnosis: Elevated troponin, chest pain 2330- Pt declined albuterol treatment for his wheezing. 2430- Pt's chest pain has resolved following Morphine administration. He endorses a headache following Morphine administration. Results of imaging and lab work shared with patient and his family. It was advised patient be admitted to the hospital for further evaluation and treatment. Patient and his family verbalized understanding and are in agreement with plan. 0140- Spoke with Dr. Montiel, hospitalist, who was in agreement with plan for admission. She requests pt have Nitro PRN ordered. Pt will be admitted to the IMU. CRITICAL CARE ADDENDUM: Indication: Chest pain, NSTEMI Time type: intermittent I provided a total of 45 minutes of critical care excluding separately billable procedures. This includes time w/ initial bedside evaluation, reviewing old records, review of testing done while under my care, discussion w/ the family, nurses, corporate learning consultant and guiding the patient?s care while in the emergency department. Approximate time distribution: 5 minutes ? Initial evaluation, d/w involved parties, attempting to gather old records. 10 minutes ? Documenting medical record 10 minutes ? Review of results (EKGs, labs, imaging) 10 minutes ? Serial repeat bedside evaluation 10 minutes ? Discussing case with multiple providers Please see main chart for details. Excludes separately billable procedures. <Mandy Rubalcava, CORK MOLDER - Last Filed: 03/12/25 02:21> Differential Diagnosis Differential Diagnosis: NSTEMI, congestive heart failure, atypical chest pain, STEMI, pulmonary embolism <Mandy Rubalcava CORK MOLDER - Last Filed: 03/12/25 02:21> Vital Signs Vital Signs: Vital Signs Temperature 36.7 C 03/11/25 23:31 Pulse Rate 43 L 03/11/25 23:31 Respiratory Rate 20 03/11/25 23:31 Blood Pressure 141/66 H 03/11/25 23:31 Pulse Oximetry 97 03/11/25 23:31 Temperature 36.7 C 03/12/25 04:14 Pulse Rate 43 L 03/12/25 04:14 Respiratory Rate 12 03/12/25 04:14 Blood Pressure 119/57 L 03/12/25 04:14 Pulse Oximetry 99 03/12/25 04:14 Oxygen Delivery Room Air 03/12/25 04:00 <Mandy Rubalcava CORK MOLDER - Last Filed: 03/12/25 02:21> Vital Signs Temperature 36.7 C 03/11/25 23:31 Pulse Rate 43 L 03/11/25 23:31 Respiratory Rate 20 03/11/25 23:31 Blood Pressure 141/66 H 03/11/25 23:31 Pulse Oximetry 97 03/11/25 23:31 Temperature 36.7 C 03/12/25 04:14 Pulse Rate 43 L 03/12/25 04:14 Respiratory Rate 12 03/12/25 04:14 Blood Pressure 119/57 L 03/12/25 04:14 Pulse Oximetry 99 03/12/25 04:14 Oxygen Delivery Room Air 03/12/25 04:00 <Eliecer Mueller MD - Last Filed: 03/12/25 06:32> Lab Data Lab results reviewed: Yes I reviewed the patient's lab results. <Mandy Rubalcava APRN - Last Filed: 03/12/25 02:21> Result diagrams: 03/11/25 23:43 03/11/25 23:43 <Mandy Rubalcava APRN - Last Filed: 03/12/25 02:21> Labs: Lab Results 03/11/25 03/12/25 Range/Units 23:43 00:10 WBC 10.2 H (4.5-10.0) K/mm3 RBC 4.34 L (4.6-6.20) M/mm3 Hgb 13.4 L (14.0-18.0) g/dL Hct 42.6 (42.0-52.0) % MCV 98.2 (80-100) fl MCH 30.9 (26-34) pg MCHC 31.5 L (32-36) g/dl RDW 14.5 (11.5-14.5) % Plt Count 273 (150-375) k/mm3 MPV 9.6 (7.4-10.4) fl Immature Gran % (Auto) 0.3 (0-0.5) % Neut % (Auto) 71.8 (45.5-73.1) % Lymph % (Auto) 10.8 L (18.3-44.2) % [place] % (Auto) 9.5 H (2.6-8.5) % Eos % (Auto) 6.9 H (0-4.4) % Baso % (Auto) 0.7 (0.2-1.2) % Lymph # (Auto) 1.10 (0.9-3.2) K/mm3 [place] # (Auto) 1.0 H (0.1-0.6) K/mm3 Eos # (Auto) 0.7 H (0-0.3) K/mm3 Baso # (Auto) 0.1 (0.0-0.1) K/mm3 Abs Immat Gran (auto) 0.03 (0.00-0.031) K/mm3 Absolute Neuts (auto) 7.3 H (1.3-6.7) K/mm3 Absolute Nucleated RBC 0.000 (0.0-0.012) K/mm3 Nucleated RBC % 0.0 (0.0-0.2) % PT 12.9 (11.1-14.7) Seconds INR 1.0 APTT 44.0 H (22.3-36.8) Seconds D-Dimer 0.31 (<0.48) ug/mL Sodium 137 (137-145) mmol/L Potassium 4.1 (3.4-5.0) mmol/L Chloride 105 (98-107) mmol/L Carbon Dioxide 28 (22-30) mmol/L Anion Gap 4 (4-12) mmol/L BUN 16 (9-20) mg/dL Creatinine 0.94 (0.7-1.3) mg/dL Estim Creat Clear Calc 59 ml/min Estimated GFR > 60 (59 - ) Glucose 116 H (65-110) mg/dL Calcium 9.1 (8.4-10.2) mg/dL Total Bilirubin 0.5 (0.2-1.3) mg/dL AST 34 (17-59) U/L ALT 19 (6-50) U/L Alkaline Phosphatase 133 H (38-126) U/L Troponin I 2.500 H* (0.000-0.034) ng/mL NT-Pro-B Natriuret Pep 6620 H (19.9-100) pg/mL Total Protein 6.3 (6.3-8.2) g/dL Albumin 3.9 (3.5-5.1) g/dL Lipase 62 (23-300) U/L Influenza A (RT-PCR) Negative (Negative) Influenza B (RT-PCR) Negative (Negative) RSV (RT-PCR) Negative (Negative) SARS-CoV-2 RNA (RT-PCR) Negative (Negative) <Mandy Rubalcava, CORK MOLDER - Last Filed: 03/12/25 02:21> Lab Results 03/11/25 03/12/25 Range/Units 23:43 00:10 WBC 10.2 H (4.5-10.0) K/mm3 RBC 4.34 L (4.6-6.20) M/mm3 Hgb 13.4 L (14.0-18.0) g/dL Hct 42.6 (42.0-52.0) % MCV 98.2 (80-100) fl MCH 30.9 (26-34) pg MCHC 31.5 L (32-36) g/dl RDW 14.5 (11.5-14.5) % Plt Count 273 (150-375) k/mm3 MPV 9.6 (7.4-10.4) fl Immature Gran % (Auto) 0.3 (0-0.5) % Neut % (Auto) 71.8 (45.5-73.1) % Lymph % (Auto) 10.8 L (18.3-44.2) % [place] % (Auto) 9.5 H (2.6-8.5) % Eos % (Auto) 6.9 H (0-4.4) % Baso % (Auto) 0.7 (0.2-1.2) % Lymph # (Auto) 1.10 (0.9-3.2) K/mm3 [place] # (Auto) 1.0 H (0.1-0.6) K/mm3 Eos # (Auto) 0.7 H (0-0.3) K/mm3 Baso # (Auto) 0.1 (0.0-0.1) K/mm3 Abs Immat Gran (auto) 0.03 (0.00-0.031) K/mm3 Absolute Neuts (auto) 7.3 H (1.3-6.7) K/mm3 Absolute Nucleated RBC 0.000 (0.0-0.012) K/mm3 Nucleated RBC % 0.0 (0.0-0.2) % PT 12.9 (11.1-14.7) Seconds INR 1.0 APTT 44.0 H (22.3-36.8) Seconds D-Dimer 0.31 (<0.48) ug/mL Sodium 137 (137-145) mmol/L Potassium 4.1 (3.4-5.0) mmol/L Chloride 105 (98-107) mmol/L Carbon Dioxide 28 (22-30) mmol/L Anion Gap 4 (4-12) mmol/L BUN 16 (9-20) mg/dL Creatinine 0.94 (0.7-1.3) mg/dL Estim Creat Clear Calc 59 ml/min Estimated GFR > 60 (59 - ) Glucose 116 H (65-110) mg/dL Calcium 9.1 (8.4-10.2) mg/dL Total Bilirubin 0.5 (0.2-1.3) mg/dL AST 34 (17-59) U/L ALT 19 (6-50) U/L Alkaline Phosphatase 133 H (38-126) U/L Troponin I 2.500 H* (0.000-0.034) ng/mL NT-Pro-B Natriuret Pep 6620 H (19.9-100) pg/mL Total Protein 6.3 (6.3-8.2) g/dL Albumin 3.9 (3.5-5.1) g/dL Lipase 62 (23-300) U/L Influenza A (RT-PCR) Negative (Negative) Influenza B (RT-PCR) Negative (Negative) RSV (RT-PCR) Negative (Negative) SARS-CoV-2 RNA (RT-PCR) Negative (Negative) <Eliecer Mueller MD - Last Filed: 03/12/25 06:32> Imaging Data Attestation: I personally reviewed and interpreted this imaging study as follows: <Mandy Rubalcava APRN - Last Filed: 03/12/25 02:21> Radiologist's impression: Patient's chest x-ray indicates no focal airspace consolidation. No radiographic evidence for florid CHF. Cardiac silhouette is borderline prominent, presumed dissection weighted by portable technique. No pleural effusion or pneumothorax. The mediastinal contours are unremarkable and similar to the previous examination dated 01/07/2020. The trachea is midline. <Mandy Rubalcava APRN - Last Filed: 03/12/25 02:21> Critical Care Time Critical Care Time Critical Care Time: Yes <Mandy Rubalcava APRN - Last Filed: 03/12/25 02:21> Yes <Eliecer Mueller MD - Last Filed: 03/12/25 06:32> Total Critical Care Time: 45 <Mandy Rubalcava APRN - Last Filed: 03/12/25 02:21> Discharge Plan Discharge Clinical Impression: Acute non-ST elevation myocardial infarction (NSTEMI), History of atrial fibrillation, History of chronic obstructive pulmonary disease, Elevated troponin I level Nicotine dependence Qualifiers: Nicotine product type: cigarettes Substance use status: uncomplicated Qualified Code(s): F17.210 - Nicotine dependence, cigarettes, uncomplicated <Mandy Rubalcava APRN - Last Filed: 03/12/25 02:21> Patient Disposition: Still a Patient <Mandy Rubalcava APRN - Last Filed: 03/12/25 02:21> Condition: Serious <Mandy Rubalcava APRN - Last Filed: 03/12/25 02:21>
[2025-03-12] MEDS: MORPHINE SULFATE (*CRX) 2 MG/ML INJ IV PUSH (00:25)
[2025-03-12 00:31] LABS: Troponin I 2.500 ng/mL (0.000-0.034)
[2025-03-12 00:48] LABS: NT Pro B Type Natriuretic Pept 6620 pg/mL (19.9-100)
[2025-03-12 00:54] LABS: Influenza A QL RT-PCR Negative (Negative); Influenza B QL RT-PCR Negative (Negative); RSV RNA, RT-PCR Negative (Negative); SARS-CoV-2 RNA PCR Negative (Negative)
--- NOTE | 2025-03-12 01:00 | ECG_ITS ---
Test Date: 2025-03-12 02:24:05 Measurements Intervals [place] Rate: 44 P: 53 LA: 168 QRS: 49 QRSD: 101 T: 86 QT: 458 QTc: 393 Interpretive Statements SINUS BRADYCARDIA WITH SINUS ARRHYTHMIA INCOMPLETE RIGHT BUNDLE BRANCH BLOCK [90+ ms QRS DURATION, TERMINAL R IN V1/V2, 40+ ms S IN I/aVL/V4/V5/V6] NONSPECIFIC T-WAVE ABNORMALITY /CONSIDER LATERAL ISCHEMIA ABNORMAL ECG Compared to ECG 03/11/2025 23:34:51 NO DIFFERENCE Electronically Signed On 03-12-2025 07:41:59 CDT by Dheeraj Armijo M.D.
--- NOTE | 2025-03-12 02:19 | ECG_ITS ---
Test Date: 2025-03-12 04:02:36 Measurements Intervals [place] Rate: 41 P: 154 DE: 143 QRS: -39 QRSD: 101 T: 150 QT: 469 QTc: 390 Interpretive Statements BASELINE ARTIFACT/REDUCED ECG: QUALITY SINUS BRADYCARDIA INCOMPLETE RIGHT BUNDLE BRANCH BLOCK NONSPECIFIC T-WAVE/CONSIDER LATERAL ISCHEMIA ABNORMAL ECG Compared to ECG 03/12/2025 02:24:05 NO SIGNIFICANT CHANGE Electronically Signed On 03-12-2025 07:43:29 CDT by Dheeraj Armijo M.D.
[2025-03-12 02:54] LABS: Troponin I 3.230 ng/mL (0.000-0.034)
[2025-03-12] MEDS: HEPARIN SOD/D5W 100 UNITS/ML 25,000 UNITS/250 ML BAG 9 UNITS IV CONT (03:19)
--- NOTE | 2025-03-12 03:51 | ADMGEN ---
This patient, Rolf Taylor, was admitted to IMU Room 207-01. Patient/family oriented to hospital policies and general routines including ID bracelet, bed and alarms, visiting hours, pain management, procedures, bathroom and other care routines, personal items, smoking policy, room service/diet, and visiting hours. Information on how to activate the Rapid Response Team has been discussed. Patient/Family are encouraged to report perceived risks to care and to ask questions if they do not understand what they are told or what they should do.
--- NOTE | 2025-03-12 04:00 | PM.IMHP ---
H&P: HPI History of Present Illness Date/Time: 03/12/25 05:30 Chief Complaint: Chest pain Narrative: 79-year-old male with a past medical history coronary artery disease with right coronary stent October 2009, chronic tobacco abuse, essential hypertension paroxysmal atrial fibrillation, prostate cancer, BPH and Raynaud's disease who presented to the ER with central chest pain. He reported he began having some chest discomfort yesterday thought was related to heartburn. He reports the pain was burning aching and pressure-like in nature. He was 7/10 in intensity. It initially occurred on the and lasted for about 2 hours. It occurred while he was working in the yard. The pain recurred on the evening of the it happened while he was working in the garage. The pain was unrelieved despite rest. The He has been taking his home 81 mg aspirin, atorvastatin and lisinopril as directed. 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 He was noted to be wheezing in the ER but patient reports that is asymptomatic from this perspective. He denies any shortness of breath cough or congestion. He refused a nebulizer treatment. He did receive a dose of morphine in the ER which resolved this chest pain but developed a headache following the morphine administration. At the time my evaluation the patient admits that he has had recurrence of his chest pain. He reports that within the last few minutes he has also developed a squeezing pain in his anterior neck which is new. Following my evaluation the patient received a dose of sublingual nitro with rapid resolution of his chest pain. He denies any associated lightheadedness, dizziness, diaphoresis, orthopnea or paroxysmal nocturnal dyspnea. He has chronic cough with frequent production of mucus in the morning. He still smokes 1 pack of cigarettes per day. He almost never uses his rescue inhaler. He has not noticed any increased wheezing. He denies palpitations. He has not had any lower extremity swelling. The patient last saw Dr. Armijo in the office July 2024. Review of Systems Review of Systems: 12 systems were reviewed with pertinent positives and negatives per HPI. Except as documented in the HPI, all other systems were reviewed and are negative. He reports significant weight loss since he was started on testosterone jose Force prostate cancer. With associated loss of muscle mass that would be expected with loss of testosterone. [facility] Past Medical History Medical History (Updated 03/12/25 @ 09:53 by Nuria Snell MD) Paroxysmal A-fib Prediabetes BPH loc w/o ur obs/LUTS Coronary artery disease (~10/2009) Status post bare metal stent to the right coronary artery. Meralgia paresthetica of left side Squamous cell skin cancer Chronic venous insufficiency of lower extremity Infrarenal abdominal aortic aneurysm (AAA) without rupture Keloid Prostate cancer (~01/2022) Incisional hernia COPD (chronic obstructive pulmonary disease) Tuberculosis As a child. Osteoarthritis Nephrolithiasis Mild emphysema Noted on prior chest CT. Essential hypertension Personal history of colon cancer, stage III (~08/2009) Status post right hemicolectomy and chemotherapy. Hyperlipidemia Surgical History Surgical History History of umbilical hernia repair (~09/2009) History of right hemicolectomy (~09/2009) History of coronary artery stent placement (~10/2009) Bare metal stent to right coronary artery. Family History Family History Sibling Family history of malignant neoplasm of breast in first degree relative Family history of cardiovascular disease Family history of coronary artery disease Hypertension Sibling Family history of cardiovascular disease Family history of coronary artery disease Hypertension Mother Family history of cardiovascular disease Family history of coronary artery disease Hypertension Abdominal aortic aneurysm History of blood clots Social History Social History Social History: The patient lives in [place], [place] with his . They have no children together, but he has 2 children from a previous marriage. 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 He smokes about a pack of cigarettes per day for the last 50+ years. He drinks perhaps 1 beer every 2 to 3 months. No illicit substance use. He designates his as his surrogate decision maker and he wishes to be a full code. Smoking packs per day: 1 Smoking cigarettes per day: 20.0 Years smoked: 50 Smoking pack-years: 50.00 Smoking status: Current every day smoker Tobacco type: cigarettes Second hand tobacco smoke exposure: Yes Alcohol intake: current Drinks per week: 1 Alcohol use details: 3X PER YEAR Substance use: never Substance use type: does not use Lack of Transportation: No Lack of Food: Never True Current Housing: I Have Housing Concerned About Future Housing: No Difficulty Paying Gas/Electric Bills: No Difficulty Paying for Meds: No Currently Unemployed: No Education: Bachelor's Degree Difficulty w/ Childcare or Family Care: No Living arrangements: with family Occupation/Education: retired Gender identity (if verbalized by the patient): Male Sexual Orientation (if Verbalized by the Patient): Straight or Heterosexual Spiritual care concerns: No Agree to blood products: Yes Meds Home Medications and Allergies Home Medications ?Medication ?Instructions ?Recorded ?Confirmed ?Type rivaroxaban 20 mg tablet (Xarelto) 20 mg PO DAILY #30 tabs 01/08/20 03/12/25 Rx aspirin 81 mg tablet,delayed 81 mg PO EVERY OTHER DAY 10/31/20 03/12/25 History release (Adult Low Dose Aspirin) lactobacillus combination no.9 4 8,000 mmu cells PO DAILY 10/31/20 03/12/25 History billion cell capsule (Adult 50 Plus Probiotic) potassium gluconate 595 mg (99 mg) 595 mg PO DAILY 10/31/20 03/12/25 History tablet ipratropium 0.5 mg-albuterol 3 mg 3 ml inhalation QID PRN shortness 10/17/21 03/12/25 Rx (2.5 mg base)/3 mL nebulization of breath #270 mL soln tamsulosin 0.4 mg capsule 0.4 mg PO DAILY 05/07/22 03/12/25 History lisinopril 20 0.5 tablet PO DAILY #45 tabs 10/26/24 03/12/25 Rx mg-hydrochlorothiazide 12.5 mg tablet atorvastatin 20 mg tablet 20 mg PO QHS #90 tabs 02/01/25 03/12/25 Rx Allergies Allergy/AdvReac Type Severity Reaction Status Date / Time grass pollen Allergy Hives Verified 03/11/25 23:35 Vital Signs Vital Signs - 24 hr 03/11/25 23:31 03/11/25 23:38 03/11/25 23:41 Temperature 98.0 F Pulse Rate 43 L 46 L Respiratory Rate 20 Blood Pressure 141/66 H Pulse Oximetry 97 98 Oxygen Delivery Room Air Exam Narrative: Weight 78.5 kg BMI 24.8 Const: Other: Well-developed, well-nourished, no acute distress HENMT: Other: Mucous membranes are tacky, no oral pharyngeal erythema, head is normocephalic atraumatic Eyes: Other: Pupils are equal and reactive, no scleral icterus, no conjunctival pallor Neck: Other: No JVD, no lymphadenopathy Resp: Other: Diffuse wheezing throughout, no increased work of breathing Cardio: Other: Bradycardic but regular rhythm, 2+ bilateral radial pedal pulses, no JVD GI: Other: Soft, nontender, nondistended, positive bowel sounds Skin: Other: Darkly tanned, non jaundice, no petechiae Neuro: Other: Alert orient x4, speech is clear, no facial asymmetry, no localizing neurologic deficits noted during the course of conversation Extrem: Other: No clubbing, cyanosis or edema, moves all extremities equally Psych: Other: Appropriate mood and affect, pleasant and cooperative, judgment and insight intact H&P: Results Labs Labs: Laboratory Tests 03/11/25 23:43 03/11/25 23:43 03/11/25 03/12/25 03/12/25 23:43 00:10 02:23 WBC 10.2 H RBC 4.34 L Hgb 13.4 L Hct 42.6 MCV 98.2 MCH 30.9 MCHC 31.5 L RDW 14.5 Plt Count 273 MPV 9.6 Immature Gran % (Auto) 0.3 Neut % (Auto) 71.8 Lymph % (Auto) 10.8 L [place] % (Auto) 9.5 H Eos % (Auto) 6.9 H Baso % (Auto) 0.7 Lymph # (Auto) 1.10 [place] # (Auto) 1.0 H Eos # (Auto) 0.7 H Baso # (Auto) 0.1 Abs Immat Gran (auto) 0.03 Absolute Neuts (auto) 7.3 H Absolute Nucleated RBC 0.000 Nucleated RBC % 0.0 PT 12.9 INR 1.0 APTT 44.0 H D-Dimer 0.31 Sodium 137 Potassium 4.1 Chloride 105 Carbon Dioxide 28 Anion Gap 4 BUN 16 Creatinine 0.94 Estim Creat Clear Calc 59 Estimated GFR > 60 Glucose 116 H Calcium 9.1 Total Bilirubin 0.5 AST 34 ALT 19 Alkaline Phosphatase 133 H Troponin I 2.500 H* 3.230 H* D NT-Pro-B Natriuret Pep 6620 H Total Protein 6.3 Albumin 3.9 Lipase 62 Influenza A (RT-PCR) Negative Influenza B (RT-PCR) Negative RSV (RT-PCR) Negative SARS-CoV-2 RNA (RT-PCR) Negative Chest x-ray personally reviewed interpreted, diaphragms mildly flattened in some mild hyperinflation. No acute cardiopulmonary process noted. Radiologic interpretation pending. EKG: Multiple EKGs reviewed all demonstrated sinus bradycardia with incomplete right bundle-branch block and nonspecific T-wave abnormalities. The most recent EKG interpretation was affected by baseline artifact into 3, AVF and aVL. Cardiology interpretation pending Assessment and Plan Assessment and plan (1) Acute non-ST elevation myocardial infarction (NSTEMI): Code(s): I21.4 - Non-ST elevation (NSTEMI) myocardial infarction Status: Acute (2) Prediabetes: Code(s): R73.03 - Prediabetes Status: Acute (3) Hyperlipidemia: Qualifiers: Hyperlipidemia type: mixed hyperlipidemia Qualified Code(s): E78.2 - Mixed hyperlipidemia Code(s): E78.5 - Hyperlipidemia, unspecified Status: Acute (4) COPD (chronic obstructive pulmonary disease): Qualifiers: COPD type: unspecified COPD Qualified Code(s): J44.9 - Chronic obstructive pulmonary disease, unspecified Code(s): J44.9 - Chronic obstructive pulmonary disease, unspecified Status: Chronic (5) Nicotine dependence: Qualifiers: Nicotine product type: cigarettes Substance use status: uncomplicated Qualified Code(s): F17.210 - Nicotine dependence, cigarettes, uncomplicated Code(s): F17.200 - Nicotine dependence, unspecified, uncomplicated Status: Acute (6) Asymptomatic bradycardia: Code(s): R00.1 - Bradycardia, unspecified Status: Acute (7) Essential hypertension: Code(s): I10 - Essential (primary) hypertension Status: Acute Plan Patient with multiple risk factors including pre diabetes, essential hypertension, hyperlipidemia and continued tobacco use presented to the ER with substernal chest pain and elevated troponin. Clinical picture suggestive of non STEMI. The patient's troponin profile is continue to increase. Patient did receive full-dose aspirin in the ER. Patient is supposed be on daily Xarelto but has only been taking Xarelto every other day here at reportedly last took his Xarelto on the . Given the patient has not had a Xarelto in over 24 hours on a initiate patient on heparin drip. We will make patient NPO for possible cardiac procedure in a.m.. Will consult [facility] Cardiology since patient is established with Dr. Armijo as outpatient. Will provide nitrate as needed if recurrent chest pain. Importance of complete cessation of tobacco use was discussed with the patient in detail. Patient's blood pressures are stable will resume patient's home lisinopril hydrochlorothiazide. Patient is having active wheezing but no other symptoms to suggest COPD exacerbation. Will continue patient's home inhalers as needed. Will continue home statin therapy. MEDICAL DECISION MAKING NARRATIVE -Spoke with the ED provider in detail regarding patient's evaluation, workup and management -Patient seen and examined at bedside -Collaborated with patient's nurse at the bedside in detail and addressed all concerns -Labs, electrolytes, radiology, investigations and test results personally reviewed and interpreted unless otherwise specified -ED/Consult/Nursing/Ancilliary notes on the chart reviewed and appreciated -Spoke with patient at bedside and diagnosis and plan of care was discussed. All questions answered. Quality VTE Prophylaxis VTE prophylaxis: pharmacologic ordered (He heparin drip per protocol.) Hospitalist MIPS Advance Care Plan I have confirmed that the patient's Advanced Care Plan is present, code status is documented, or surrogate decision maker is listed in patient medical record.: Yes Medication Reconciliation I have utilized all available resources to obtain, update and review the patients current medications (includes all prescriptions, OTC, herbals, cannabis, and nutritional supplements).: Yes
--- NOTE | 2025-03-12 05:34 | ECG_ITS ---
Test Date: 2025-03-12 06:04:37 Measurements Intervals [place] Rate: 45 P: 102 SD: 160 QRS: 34 QRSD: 100 T: 89 QT: 456 QTc: 397 Interpretive Statements SINUS BRADYCARDIA INCOMPLETE RIGHT BUNDLE BRANCH BLOCK [90+ ms QRS DURATION, TERMINAL R IN V1/V2, 40+ ms S IN I/aVL/V4/V5/V6] MODERATE T-WAVE ABNORMALITY, CONSIDER ANTEROLATERAL ISCHEMIA [-0.1+ mV T WAVE IN V3-V6] ABNORMAL ECG Compared to ECG 03/12/2025 04:02:36 NO DIFFERENCE Electronically Signed On 03-12-2025 07:44:32 CDT by Dheeraj Armijo M.D.
[2025-03-12] MEDS: NITROGLYCERIN SL 0.4 MG TABLET SUBLINGUAL (05:55)
[2025-03-12 06:46] LABS: Troponin I 4.990 ng/mL (0.000-0.034)
--- NOTE | 2025-03-12 08:46 | PM.IMPN ---
Progress Note: A&P Assessment and Plan (1) Acute non-ST elevation myocardial infarction (NSTEMI): Code(s): I21.4 - Non-ST elevation (NSTEMI) myocardial infarction Status: Acute (2) Prediabetes: Code(s): R73.03 - Prediabetes Status: Acute (3) Hyperlipidemia: Qualifiers: Hyperlipidemia type: mixed hyperlipidemia Qualified Code(s): E78.2 - Mixed hyperlipidemia Code(s): E78.5 - Hyperlipidemia, unspecified Status: Acute (4) COPD (chronic obstructive pulmonary disease): Qualifiers: COPD type: unspecified COPD Qualified Code(s): J44.9 - Chronic obstructive pulmonary disease, unspecified Code(s): J44.9 - Chronic obstructive pulmonary disease, unspecified Status: Chronic (5) Nicotine dependence: Qualifiers: Nicotine product type: cigarettes Substance use status: uncomplicated Qualified Code(s): F17.210 - Nicotine dependence, cigarettes, uncomplicated Code(s): F17.200 - Nicotine dependence, unspecified, uncomplicated Status: Acute (6) Asymptomatic bradycardia: Code(s): R00.1 - Bradycardia, unspecified Status: Acute (7) Essential hypertension: Code(s): I10 - Essential (primary) hypertension Status: Acute Plan Patient with multiple risk factors including pre diabetes, essential hypertension, hyperlipidemia and continued tobacco use presented to the ER with substernal chest pain and elevated troponin. Clinical picture suggestive of non STEMI. The patient's troponin profile is continue to increase. Patient did receive full-dose aspirin in the ER. Patient is supposed be on daily Xarelto but has only been taking Xarelto every other day here at reportedly last took his Xarelto on the . Given the patient has not had a Xarelto in over 24 hours on a initiate patient on heparin drip. We will make patient NPO for possible cardiac procedure in a.m.. Will consult [facility] Cardiology since patient is established with Dr. Armijo as outpatient. Will provide nitrate as needed if recurrent chest pain. Importance of complete cessation of tobacco use was discussed with the patient in detail. Substernal chest pain NSTEMI Cardiology consulted On a heparin drip Continue asa Hx CAD s/p RCA stent in October 2009 bare metal stent Continue ASA, Statin Hold lisinopril for possible cath Hx Afib Episode of afib with RVR 2019, converted with IV diltiazem [facility], Dr. Armijo Home Xarelto, takes inconsistently. Last dose reported 03/10 HTN Blood pressures soft Hold Home hydrochlorothiazide pending cardiology evaluation Hold lisinopril this morning since troponin uptrending, may need a cath Wheezing Patient is having active wheezing but no other symptoms to suggest COPD exacerbation. continue patient's home inhalers as needed. Hx prostate CA Continue tamsulosin MEDICAL DECISION MAKING NARRATIVE -Collaborated with patient's nurse at the bedside in detail and addressed all concerns -Labs, electrolytes, radiology, investigations and test results personally reviewed and interpreted unless otherwise specified -Consult/Nursing/Ancilliary notes on the chart reviewed and appreciated -Spoke with patient at bedside and diagnosis and plan of care was discussed. All questions answered. Time Spent With Patient Time: 56 minutes Subjective Date/time seen: 03/12/25 08:46 Interval history: HR 40-43, BP soft, 103/52 Planning cardiac cath today Chest pain resolved. No shortness of breath Review of Systems Review of Systems: 12 systems were reviewed with pertinent positives and negatives per HPI. Except as documented in the HPI, all other systems were reviewed and are negative. Exam Narrative: Weight 78.5 kg BMI 24.8 General - Awake and alert. No acute distress Eyes - PERRLA, EOM intact ENT - No thrush, No erythema Neck - No noticeable or palpable swelling Lymph Nodes - No lymphadenopathy Cardiovascular - RRR no m/r/g, no JVD Lungs: Clear to auscultation, No wheezing, use of accessory muscles, no crackles Skin - Skin warm and dry, no wounds or rashes Abdomen - Normal bowel sounds, abdomen soft and nontender Extremities - No edema, cyanosis or clubbing Musculoskeletal - 5/5 strength, normal range of motion, no swollen or erythematous joints. Neurological ? Alert and oriented x 3, CN 2-12 grossly intact. Psych: Normal mood and affect Objective Data Vital Signs Vital Signs: Vital Signs - 24 hr 03/11/25 23:31 03/11/25 23:38 03/11/25 23:41 Temperature 98.0 F Pulse Rate 43 L 46 L Respiratory Rate 20 Blood Pressure 141/66 H Pulse Oximetry 97 98 Oxygen Delivery Room Air 03/12/25 04:00 03/12/25 04:00 03/12/25 04:14 Temperature 98.1 F Pulse Rate 40 L 43 L Respiratory Rate 12 Blood Pressure 119/57 L Pulse Oximetry 99 99 Oxygen Delivery Room Air 03/12/25 06:00 03/12/25 08:00 Temperature 98.4 F Pulse Rate 43 L 40 L Respiratory Rate 17 Blood Pressure 103/52 L Pulse Oximetry 97 Oxygen Delivery Meds/Results Medications: Active Medications Generic Name Dose Route Start Last Admin Trade Name Freq PRN Reason Stop Dose Admin Acetaminophen 650 mg 03/12/25 01:45 Acetaminophen 325 Mg Tablet PO Q4H PRN Mild Pain (1-3) or Fever Albuterol/Ipratropium 3 ml 03/12/25 04:31 Ipratropium 0.5 Mg/Albuterol Sulfate 2.5 Mg Ampul.Neb 3 Ml INHALATION Q6HRT PRN Shortness Of Breath Aspirin 81 mg 03/12/25 09:00 Aspirin 81 Mg Enteric Tablet PO QAM [facility] Atorvastatin Calcium 20 mg 03/12/25 21:00 Atorvastatin 20 Mg Tablet PO QHS [facility] Heparin Sodium (Porcine) 4,000 units 03/12/25 03:10 Heparin Sodium 5,000 Units/Ml Vial IV PUSH PRN PRN aPTT less than 55 seconds Heparin Sodium (Porcine) 3,000 units 03/12/25 03:10 Heparin Sodium 5,000 Units/Ml Vial IV PUSH PRN PRN aPTT 55 - 70 seconds Hydrochlorothiazide 6.25 mg 03/12/25 09:00 Hydrochlorothiazide 6.25 Mg Tablet PO QAM [facility] Heparin Sodium/Dextrose 25,000 units in 250 mls @ 9 mls/hr 03/12/25 03:10 03/12/25 03:19 Heparin Sodium/D5w 100 Units/Ml IV CONT 900 units/hr .Q24H [facility] 9 mls/hr Protocol Administration 900 UNITS/HR Lisinopril 10 mg 03/12/25 09:00 Lisinopril 10 Mg Tablet PO QAM [facility] Nitroglycerin 0.4 mg 03/12/25 01:45 03/12/25 05:55 Nitroglycerin Sl 0.4 Mg Tablet SUBLINGUAL 0.4 mg Q5MIN PRN Administration Chest Pain Tamsulosin HCl 0.4 mg 03/12/25 17:00 Tamsulosin Hcl 0.4 Mg Capsule PO DAILY [facility] Labs Labs: Laboratory Results - last 24 hr 03/11/25 03/12/25 03/12/25 23:43 00:10 02:23 WBC 10.2 H RBC 4.34 L Hgb 13.4 L Hct 42.6 MCV 98.2 MCH 30.9 MCHC 31.5 L RDW 14.5 Plt Count 273 MPV 9.6 Immature Gran % (Auto) 0.3 Neut % (Auto) 71.8 Lymph % (Auto) 10.8 L [place] % (Auto) 9.5 H Eos % (Auto) 6.9 H Baso % (Auto) 0.7 Lymph # (Auto) 1.10 [place] # (Auto) 1.0 H Eos # (Auto) 0.7 H Baso # (Auto) 0.1 Abs Immat Gran (auto) 0.03 Absolute Neuts (auto) 7.3 H Absolute Nucleated RBC 0.000 Nucleated RBC % 0.0 PT 12.9 INR 1.0 APTT 44.0 H D-Dimer 0.31 Sodium 137 Potassium 4.1 Chloride 105 Carbon Dioxide 28 Anion Gap 4 BUN 16 Creatinine 0.94 Estim Creat Clear Calc 59 Estimated GFR > 60 Glucose 116 H Calcium 9.1 Total Bilirubin 0.5 AST 34 ALT 19 Alkaline Phosphatase 133 H Troponin I 2.500 H* 3.230 H* D NT-Pro-B Natriuret Pep 6620 H Total Protein 6.3 Albumin 3.9 Lipase 62 Influenza A (RT-PCR) Negative Influenza B (RT-PCR) Negative RSV (RT-PCR) Negative SARS-CoV-2 RNA (RT-PCR) Negative 03/12/25 06:00 WBC RBC Hgb Hct MCV MCH MCHC RDW Plt Count MPV Immature Gran % (Auto) Neut % (Auto) Lymph % (Auto) [place] % (Auto) Eos % (Auto) Baso % (Auto) Lymph # (Auto) [place] # (Auto) Eos # (Auto) Baso # (Auto) Abs Immat Gran (auto) Absolute Neuts (auto) Absolute Nucleated RBC Nucleated RBC % PT INR APTT D-Dimer Sodium Potassium Chloride Carbon Dioxide Anion Gap BUN Creatinine Estim Creat Clear Calc Estimated GFR Glucose Calcium Total Bilirubin AST ALT Alkaline Phosphatase Troponin I 4.990 H* D NT-Pro-B Natriuret Pep Total Protein Albumin Lipase Influenza A (RT-PCR) Influenza B (RT-PCR) RSV (RT-PCR) SARS-CoV-2 RNA (RT-PCR) Quality VTE Prophylaxis VTE prophylaxis: pharmacologic ordered (He heparin drip per protocol.) Hospitalist MIPS Advance Care Plan I have confirmed that the patient's Advanced Care Plan is present, code status is documented, or surrogate decision maker is listed in patient medical record.: Yes Medication Reconciliation I have utilized all available resources to obtain, update and review the patients current medications (includes all prescriptions, OTC, herbals, cannabis, and nutritional supplements).: Yes
[2025-03-12] MEDS: ASPIRIN 81 MG ENTERIC TABLET PO (08:53)
--- NOTE | 2025-03-12 09:44 | P.CONCA_ITS ---
Assessment and Plan Assessment and plan (1) Acute non-ST elevation myocardial infarction (NSTEMI): Code(s): I21.4 - Non-ST elevation (NSTEMI) myocardial infarction Status: Acute Assessment and Plan: Continue heparin drip. Continue aspirin, statin. No beta-jose due to bradycardia. TTE today. Troponin rising. Recommend cardiac catheterization to evaluate coronaries and for possible percutaneous coronary intervention. Alternatives, risks, benefits were discussed with patient in detail and he agrees to proceed. Keep NPO. Continue monitoring on telemetry. Check and replace electrolytes to keep potassium greater than 4 and magnesium greater than 2. (2) CAD in [place] artery: Code(s): I25.10 - Atherosclerotic heart disease of [place] coronary artery without angina pectoris Status: Acute Assessment and Plan: Patient had a stent in 2009. Continue aspirin, statin. No beta-jose due to bradycardia. (3) Asymptomatic bradycardia: Code(s): R00.1 - Bradycardia, unspecified Status: Acute Assessment and Plan: He remains asymptomatic. No beta-jose or any AV beni jose due to bradycardia. Continue monitoring on telemetry. Check and replace electrolytes to keep potassium greater than 4 and magnesium greater than 2. (4) Hyperlipidemia: Qualifiers: Hyperlipidemia type: mixed hyperlipidemia Qualified Code(s): E78.2 - Mixed hyperlipidemia Code(s): E78.5 - Hyperlipidemia, unspecified Status: Acute Assessment and Plan: Continue statin. (5) Essential hypertension: Code(s): I10 - Essential (primary) hypertension Status: Acute Assessment and Plan: Continue lisinopril and hydrochlorothiazide. (6) Paroxysmal A-fib: Code(s): I48.0 - Paroxysmal atrial fibrillation Status: Acute Assessment and Plan: He is currently sinus rhythm. He has asymptomatic bradycardia with heart rate in the 40s. No beta-jose or any other AV beni blocking agents due to bradycardia. Hold Xarelto for cardiac catheterization. History of Present Illness History of Present Illness Consult date/time: 03/12/25 09:44 Reason For Visit: NSTEMI, elevated troponin, chest pain Narrative: 79-year-old male with history of CAD status post PCI in 2009, hyperlipidemia, hypertension, paroxysmal AFib on Eliquis, BPH, prediabetes, squamous cell skin cancer, chronic lower extremity venous insufficiency, infrarenal abdominal aortic aneurysm, prostate cancer, stage III colon cancer, COPD, osteoarthritis, emphysema presents with chief complaints of chest pain since Saturday. Patient states that his symptoms started on Saturday while he was working in the garage. The pain was located in the center of his chest and was tightness and burning in nature. Pain was without radiation and lasted for few hours before resolving spontaneously. There were no aggravating or relieving factors. The pain recurred yesterday evening at around 8:00 p.m. while he was working in his garage again. The pain was located in the center of his chest with radiation to the neck. It was a tightness and burning in nature. At worst it was 8/10 in intensity. It was not associated with any shortness of breath or diaphoresis. His then brought him to the ER. The pain resolved after he was started on heparin drip in the ER. No shortness of breath, dizziness, lightheadedness, presyncope, syncope, palpitations, orthopnea, PND, recent weight gain or loss, leg swelling. Troponin is elevated. EKG shows sinus bradycardia with ST depressions and T-wave inversions in leads 1, aVL, V2 to V6. Cardiology is consulted for further management of NSTEMI. Workup: Hemoglobin: 13.4 Creatinine: 0.94 Troponin: 2.5, 3.230, 4.990 NT proBNP: 6620 EKG: Sinus bradycardia, incomplete right bundle branch block, ST depression and T-wave inversions in leads 1, aVL, V2-V6 Chest x-ray: No acute cardiopulmonary pathology Review of Systems 2 Review of Systems: A complete review of systems was performed and pertinent positives are reported in the HPI. [facility] Past Medical History Medical History (Updated 03/12/25 @ 09:53 by Nuria Snell MD) Paroxysmal A-fib Prediabetes BPH loc w/o ur obs/LUTS Coronary artery disease (~10/2009) Status post bare metal stent to the right coronary artery. Meralgia paresthetica of left side Squamous cell skin cancer Chronic venous insufficiency of lower extremity Infrarenal abdominal aortic aneurysm (AAA) without rupture Keloid Prostate cancer (~01/2022) Incisional hernia COPD (chronic obstructive pulmonary disease) Tuberculosis As a child. Osteoarthritis Nephrolithiasis Mild emphysema Noted on prior chest CT. Essential hypertension Personal history of colon cancer, stage III (~08/2009) Status post right hemicolectomy and chemotherapy. Hyperlipidemia Surgical History Surgical History History of umbilical hernia repair (~09/2009) History of right hemicolectomy (~09/2009) History of coronary artery stent placement (~10/2009) Bare metal stent to right coronary artery. Family History Family History Sibling Family history of malignant neoplasm of breast in first degree relative Family history of cardiovascular disease Family history of coronary artery disease Hypertension Sibling Family history of cardiovascular disease Family history of coronary artery disease Hypertension Mother Family history of cardiovascular disease Family history of coronary artery disease Hypertension Abdominal aortic aneurysm History of blood clots Social History Social History Social History: The patient lives in [place], [place] with his . They have no children together, but he has 2 children from a previous marriage. 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 He smokes about a pack of cigarettes per day for the last 50+ years. He drinks perhaps 1 beer every 2 to 3 months. No illicit substance use. He designates his as his surrogate decision maker and he wishes to be a full code. Smoking packs per day: 1 Smoking cigarettes per day: 20.0 Years smoked: 50 Smoking pack-years: 50.00 Smoking status: Current every day smoker Tobacco type: cigarettes Second hand tobacco smoke exposure: Yes Alcohol intake: current Drinks per week: 1 Alcohol use details: 3X PER YEAR Substance use: never Substance use type: does not use Lack of Transportation: No Lack of Food: Never True Current Housing: I Have Housing Concerned About Future Housing: No Difficulty Paying Gas/Electric Bills: No Difficulty Paying for Meds: No Currently Unemployed: No Education: Bachelor's Degree Difficulty w/ Childcare or Family Care: No Living arrangements: with family Occupation/Education: retired Gender identity (if verbalized by the patient): Male Sexual Orientation (if Verbalized by the Patient): Straight or Heterosexual Spiritual care concerns: No Agree to blood products: Yes Meds Home Medications and Allergies Home Medications ?Medication ?Instructions ?Recorded ?Confirmed ?Type rivaroxaban 20 mg tablet (Xarelto) 20 mg PO DAILY #30 tabs 01/08/20 03/12/25 Rx aspirin 81 mg tablet,delayed 81 mg PO EVERY OTHER DAY 10/31/20 03/12/25 History release (Adult Low Dose Aspirin) lactobacillus combination no.9 4 8,000 mmu cells PO DA RIP 10/31/20 03/12/25 History billion cell capsule (Adult 50 Plus Probiotic) potassium gluconate 595 mg (99 mg) 595 mg PO DAILY 03/12/25 History tablet ipratropium 0.5 mg-albuterol 3 mg 3 ml inhalation QID PRN shortness 10/17/21 03/12/25 Rx (2.5 mg base)/3 mL nebulization of breath #270 mL soln tamsulosin 0.4 mg capsule 0.4 mg PO DAILY 05/07/22 History lisinopril 20 0.5 tablet PO DAILY #45 tabs 10/26/24 03/12/25 Rx mg-hydrochlorothiazide 12.5 mg tablet atorvastatin 20 mg tablet 20 mg PO QHS #90 tabs 03/12/25 Rx Allergies Allergy/AdvReac Type Severity Reaction Status Date / Time grass pollen Allergy Hives Verified 03/11/25 23:35 Vital Signs Vital Signs - 24 hr 03/11/25 23:31 03/11/25 23:38 03/11/25 23:41 Temperature 36.7 C Pulse Rate 43 L 46 L Respiratory Rate 20 Blood Pressure 141/66 H Pulse Oximetry 97 98 Oxygen Delivery Room Air 03/12/25 04:00 03/12/25 04:00 03/12/25 04:14 Temperature 36.7 C Pulse Rate 40 L 43 L Respiratory Rate 12 Blood Pressure 119/57 L Pulse Oximetry 99 99 Oxygen Delivery Room Air 03/12/25 06:00 03/12/25 08:00 Temperature 36.9 C Pulse Rate 43 L 40 L Respiratory Rate 17 Blood Pressure 103/52 L Pulse Oximetry 97 Oxygen Delivery Exam 2 Narrative: General: Alert oriented x3, no acute distress Neck: Supple, no JVD Chest: Bilaterally clear to auscultation, no rales or rhonchi Cardiac: S1, S2 +, regular rate, regular rhythm, no murmurs or rubs Extremities: No pedal edema, no skin rash Neurologic: Alert and oriented x3, no focal neurological deficits Results Labs and Meds 03/11/25 23:43 03/11/25 23:43 Lab results: Cardiac Enzymes 03/11/25 03/12/25 03/12/25 Range/Units 23:43 02:23 06:00 AST 34 (17-59) U/L Troponin I 2.500 H* 3.230 H* D 4.990 H* D (0.000-0.034) ng/mL Coagulation 03/11/25 Range/Units 23:43 PT 12.9 (11.1-14.7) Seconds APTT 44.0 H (22.3-36.8) Seconds CBC 03/11/25 Range/Units 23:43 WBC 10.2 H (4.5-10.0) K/mm3 RBC 4.34 L (4.6-6.20) M/mm3 Hgb 13.4 L (14.0-18.0) g/dL Hct 42.6 (42.0-52.0) % Plt Count 273 (150-375) k/mm3 Lymph # (Auto) 1.10 (0.9-3.2) K/mm3 [place] # (Auto) 1.0 H (0.1-0.6) K/mm3 Eos # (Auto) 0.7 H (0-0.3) K/mm3 Baso # (Auto) 0.1 (0.0-0.1) K/mm3 Comprehensive Metabolic Panel 03/11/25 Range/Units 23:43 Sodium 137 (137-145) mmol/L Potassium 4.1 (3.4-5.0) mmol/L Chloride 105 (98-107) mmol/L Carbon Dioxide 28 (22-30) mmol/L BUN 16 (9-20) mg/dL Creatinine 0.94 (0.7-1.3) mg/dL Glucose 116 H (65-110) mg/dL Calcium 9.1 (8.4-10.2) mg/dL AST 34 (17-59) U/L ALT 19 (6-50) U/L Alkaline Phosphatase 133 H (38-126) U/L Total Protein 6.3 (6.3-8.2) g/dL Albumin 3.9 (3.5-5.1) g/dL Patient Weight 03/12/25 23:59 Weight 78.5 kg
[2025-03-12 09:49] LABS: Partial Thromboplastin Time 125.1 Seconds (22.3-36.8)
--- NOTE | 2025-03-12 09:54 | P.SEDATION_ITS ---
Moderate Sedation Note-Pt Data Patient Data Allergies Allergy/AdvReac Type Severity Reaction Status Date / Time grass pollen Allergy Hives Verified 03/11/25 23:35 Home Medications ?Medication ?Instructions ?Recorded ?Confirmed ?Type rivaroxaban 20 mg tablet (Xarelto) 20 mg PO DAILY #30 tabs 01/08/20 03/12/25 Rx aspirin 81 mg tablet,delayed 81 mg PO EVERY OTHER DAY 10/31/20 03/12/25 History release (Adult Low Dose Aspirin) lactobacillus combination no.9 4 8,000 mmu cells PO DA RIP 10/31/20 03/12/25 History billion cell capsule (Adult 50 Plus Probiotic) potassium gluconate 595 mg (99 mg) 595 mg PO DAILY 03/12/25 History tablet ipratropium 0.5 mg-albuterol 3 mg 3 ml inhalation QID PRN shortness 10/17/21 03/12/25 Rx (2.5 mg base)/3 mL nebulization of breath #270 mL soln tamsulosin 0.4 mg capsule 0.4 mg PO DAILY 05/07/22 History lisinopril 20 0.5 tablet PO DAILY #45 tabs 10/26/24 03/12/25 Rx mg-hydrochlorothiazide 12.5 mg tablet atorvastatin 20 mg tablet 20 mg PO QHS #90 tabs 03/12/25 Rx Current Medications: Active Medications Acetaminophen (Acetaminophen 325 Mg Tablet) 650 mg PO Q4H PRN PRN Reason: Mild Pain (1-3) or Fever Albuterol/Ipratropium (Ipratropium 0.5 Mg/Albuterol Sulfate 2.5 Mg Ampul.Neb 3 Ml) 3 ml INHALATION Q6HRT PRN PRN Reason: Shortness Of Breath Aspirin (Aspirin 81 Mg Enteric Tablet) 81 mg PO [facility] Last Admin: 03/12/25 08:53 Dose: 81 mg Atorvastatin Calcium (Atorvastatin 20 Mg Tablet) 20 mg PO QHS [facility] Heparin Sodium (Porcine) (Heparin Sodium 5,000 Units/Ml Vial) 4,000 units IV PUSH PRN PRN PRN Reason: aPTT less than 55 seconds Heparin Sodium (Porcine) (Heparin Sodium 5,000 Units/Ml Vial) 3,000 units IV PUSH PRN PRN PRN Reason: aPTT 55 - 70 seconds Hydrochlorothiazide (Hydrochlorothiazide 6.25 Mg Tablet) 6.25 mg PO QAM BENIGNO On Hold: 03/12/25 09:00 Heparin Sodium/Dextrose (Heparin Sodium/D5w 100 Units/Ml) 25,000 units in 250 mls @ 9 mls/hr IV CONT .Q24H BENIGNO; Protocol Last Admin: 03/12/25 03:19 Dose: 900 units/hr, 9 mls/hr Lisinopril (Lisinopril 10 Mg Tablet) 10 mg PO QAM BENIGNO On Hold: 03/12/25 09:00 Nitroglycerin (Nitroglycerin Sl 0.4 Mg Tablet) 0.4 mg SUBLINGUAL Q5MIN PRN PRN Reason: Chest Pain Last Admin: 03/12/25 05:55 Dose: 0.4 mg Perflutren Lipid Microsphere (Perflutren Lipid Microspheres 1.5 Ml Vial Diluted To 10 Ml Total Volume) 0 ml IV PUSH ONCE PRN; Protocol PRN Reason: adequate visualization Stop: 03/15/25 09:53 Tamsulosin HCl (Tamsulosin Hcl 0.4 Mg Capsule) 0.4 mg PO DAILY BENIGNO Sedation/Anesthesia: No previous sedation/anesthesia problems (including family history). [facility] Past Medical History Medical History (Updated 03/12/25 @ 09:53 by Nuria Snell MD) Paroxysmal A-fib Prediabetes BPH loc w/o ur obs/LUTS Coronary artery disease (~10/2009) Status post bare metal stent to the right coronary artery. Meralgia paresthetica of left side Squamous cell skin cancer Chronic venous insufficiency of lower extremity Infrarenal abdominal aortic aneurysm (AAA) without rupture Keloid Prostate cancer (~01/2022) Incisional hernia COPD (chronic obstructive pulmonary disease) Tuberculosis As a child. Osteoarthritis Nephrolithiasis Mild emphysema Noted on prior chest CT. Essential hypertension Personal history of colon cancer, stage III (~08/2009) Status post right hemicolectomy and chemotherapy. Hyperlipidemia Surgical History Surgical History History of umbilical hernia repair (~09/2009) History of right hemicolectomy (~09/2009) History of coronary artery stent placement (~10/2009) Bare metal stent to right coronary artery. Family History Family History Sibling Family history of malignant neoplasm of breast in first degree relative Family history of cardiovascular disease Family history of coronary artery disease Hypertension Sibling Family history of cardiovascular disease Family history of coronary artery disease Hypertension Mother Family history of cardiovascular disease Family history of coronary artery disease Hypertension Abdominal aortic aneurysm History of blood clots Social History Social History Social History: The patient lives in [place], [place] with his . They have no children together, but he has 2 children from a previous marriage. 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 He smokes about a pack of cigarettes per day for the last 50+ years. He drinks perhaps 1 beer every 2 to 3 months. No illicit substance use. He designates his as his surrogate decision maker and he wishes to be a full code. Smoking packs per day: 1 Smoking cigarettes per day: 20.0 Years smoked: 50 Smoking pack-years: 50.00 Smoking status: Current every day smoker Tobacco type: cigarettes Second hand tobacco smoke exposure: Yes Alcohol intake: current Drinks per week: 1 Alcohol use details: 3X PER YEAR Substance use: never Substance use type: does not use Lack of Transportation: No Lack of Food: Never True Current Housing: I Have Housing Concerned About Future Housing: No Difficulty Paying Gas/Electric Bills: No Difficulty Paying for Meds: No Currently Unemployed: No Education: Bachelor's Degree Difficulty w/ Childcare or Family Care: No Living arrangements: with family Occupation/Education: retired Gender identity (if verbalized by the patient): Male Sexual Orientation (if Verbalized by the Patient): Straight or Heterosexual Spiritual care concerns: No Agree to blood products: Yes Mod Sed Physical Exam Physical Exam Pre Procedural Exam: Normal: Airway, Lungs, Heart Rate and Heart Rhythm Hours since solid foods: 12 Hours since liquid intake: 12 Mallampati Classification: class II and class III Internal Medicine - PN: Obj Da Vital Signs Vital Signs: Vital Signs - 24 hr 03/11/25 23:31 03/11/25 23:38 03/11/25 23:41 Temperature 36.7 C Pulse Rate 43 L 46 L Respiratory Rate 20 Blood Pressure 141/66 H Pulse Oximetry 97 98 Oxygen Delivery Room Air 03/12/25 04:00 03/12/25 04:00 03/12/25 04:14 Temperature 36.7 C Pulse Rate 40 L 43 L Respiratory Rate 12 Blood Pressure 119/57 L Pulse Oximetry 99 99 Oxygen Delivery Room Air 03/12/25 06:00 03/12/25 08:00 Temperature 36.9 C Pulse Rate 43 L 40 L Respiratory Rate 17 Blood Pressure 103/52 L Pulse Oximetry 97 Oxygen Delivery Meds/Results Medications: Active Medications Generic Name Dose Route Start Last Admin Trade Name Freq PRN Reason Stop Dose Admin Acetaminophen 650 mg 03/12/25 01:45 Acetaminophen 325 Mg Tablet PO Q4H PRN Mild Pain (1-3) or Fever Albuterol/Ipratropium 3 ml 03/12/25 04:31 Ipratropium 0.5 Mg/Albuterol Sulfate 2.5 Mg Ampul.Neb 3 Ml INHALATION Q6HRT PRN Shortness Of Breath Aspirin 81 mg 03/12/25 09:00 03/12/25 08:53 Aspirin 81 Mg Enteric Tablet PO 81 mg QAM BENIGNO Administration Atorvastatin Calcium 20 mg 03/12/25 21:00 Atorvastatin 20 Mg Tablet PO QHS [facility] Heparin Sodium (Porcine) 4,000 units 03/12/25 03:10 Heparin Sodium 5,000 Units/Ml Vial IV PUSH PRN PRN aPTT less than 55 seconds Heparin Sodium (Porcine) 3,000 units 03/12/25 03:10 Heparin Sodium 5,000 Units/Ml Vial IV PUSH PRN PRN aPTT 55 - 70 seconds Hydrochlorothiazide 6.25 mg 03/12/25 09:00 Hydrochlorothiazide 6.25 Mg Tablet PO On Hold: 03/12/25 09:00 [facility] Heparin Sodium/Dextrose 25,000 units in 250 mls @ 9 mls/hr 03/12/25 03:10 03/12/25 03:19 Heparin Sodium/D5w 100 Units/Ml IV CONT 900 units/hr .Q24H BENIGNO 9 mls/hr Protocol Administration 900 UNITS/HR Lisinopril 10 mg 03/12/25 09:00 Lisinopril 10 Mg Tablet PO On Hold: 03/12/25 09:00 [facility] Nitroglycerin 0.4 mg 03/12/25 01:45 03/12/25 05:55 Nitroglycerin Sl 0.4 Mg Tablet SUBLINGUAL 0.4 mg Q5MIN PRN Administration Chest Pain Perflutren Lipid Microsphere 0 ml 03/12/25 09:53 Perflutren Lipid Microspheres 1.5 Ml Vial Diluted To 10 Ml Total Volume IV PUSH 03/15/25 09:53 ONCE PRN adequate visualization Protocol Tamsulosin HCl 0.4 mg 03/12/25 17:00 Tamsulosin Hcl 0.4 Mg Capsule PO DAILY BENIGNO Radiology Results: ITS Impressions Chest X-Ray 03/12/25 08:48 IMPRESSION: 1. No acute cardiopulmonary findings given portable technique. Labs 03/11/25 23:43 03/11/25 23:43 Labs: Laboratory Results - last 24 hr 03/11/25 03/12/25 03/12/25 23:43 00:10 02:23 WBC 10.2 H RBC 4.34 L Hgb 13.4 L Hct 42.6 MCV 98.2 MCH 30.9 MCHC 31.5 L RDW 14.5 Plt Count 273 MPV 9.6 Immature Gran % (Auto) 0.3 Neut % (Auto) 71.8 Lymph % (Auto) 10.8 L [place] % (Auto) 9.5 H Eos % (Auto) 6.9 H Baso % (Auto) 0.7 Lymph # (Auto) 1.10 [place] # (Auto) 1.0 H Eos # (Auto) 0.7 H Baso # (Auto) 0.1 Abs Immat Gran (auto) 0.03 Absolute Neuts (auto) 7.3 H Absolute Nucleated RBC 0.000 Nucleated RBC % 0.0 PT 12.9 INR 1.0 APTT 44.0 H D-Dimer 0.31 Sodium 137 Potassium 4.1 Chloride 105 Carbon Dioxide 28 Anion Gap 4 BUN 16 Creatinine 0.94 Estim Creat Clear Calc 59 Estimated GFR > 60 Glucose 116 H Calcium 9.1 Total Bilirubin 0.5 AST 34 ALT 19 Alkaline Phosphatase 133 H Troponin I 2.500 H* 3.230 H* D NT-Pro-B Natriuret Pep 6620 H Total Protein 6.3 Albumin 3.9 Lipase 62 Influenza A (RT-PCR) Negative Influenza B (RT-PCR) Negative RSV (RT-PCR) Negative SARS-CoV-2 RNA (RT-PCR) Negative 03/12/25 03/12/25 06:00 09:18 WBC RBC Hgb Hct MCV MCH MCHC RDW Plt Count MPV Immature Gran % (Auto) Neut % (Auto) Lymph % (Auto) [place] % (Auto) Eos % (Auto) Baso % (Auto) Lymph # (Auto) [place] # (Auto) Eos # (Auto) Baso # (Auto) Abs Immat Gran (auto) Absolute Neuts (auto) Absolute Nucleated RBC Nucleated RBC % PT INR APTT 125.1 H D-Dimer Sodium Potassium Chloride Carbon Dioxide Anion Gap BUN Creatinine Estim Creat Clear Calc Estimated GFR Glucose Calcium Total Bilirubin AST ALT Alkaline Phosphatase Troponin I 4.990 H* D NT-Pro-B Natriuret Pep Total Protein Albumin Lipase Influenza A (RT-PCR) Influenza B (RT-PCR) RSV (RT-PCR) SARS-CoV-2 RNA (RT-PCR) ASA Classification/Sedation ASA Classification/Sedation ASA Class: III Emergent: No Risks: Risks, benefits and alternatives explained and patient/family accepted plan for sedation. Patient re-evaluated immediately prior to sedation.
--- NOTE | 2025-03-12 09:55 | WPDHPUPDATE1 ---
History and Physical Update Update Date/Time: 03/12/25 09:55 History and Physical has been reviewed, including an updated exam of the patient. There are NO changes in the patient's condition. Risks, benefits, and alternatives have been discussed and questions answered. Patient agrees to proceed with procedure.
[2025-03-12 10:11] LABS: Troponin I 7.520 ng/mL (0.000-0.034)
[2025-03-12 10:38] LABS: Thyroid Stimulating Hormone 1.670 uIU/mL (0.465-4.680)
--- NOTE | 2025-03-12 12:12 | WPDCARDPROC ---
Cardiac Cath Procedure Note Date of procedure:: 03/12/25 Performing physician:: Nuria Snell MD Indication:: CATHETERIZATION LABORATORY REPORT Procedure Date: 03/12/2025 Anesthesia: Versed and Fentanyl were ordered and given in my presence at 10:50 a.m., procedure ended at 11:23 a.m.. Supervision of nurse monitored moderate sedation with Versed and Fentanyl was provided for 33 minutes. Fentanyl: 100 mcg Versed: 1.5 mg Pre-op Diagnosis: NSTEMI Post-op Diagnosis: NSTEMI 100% occlusion of proximal left circumflex with right to left collateral-most likely subacute in nature Procedure(s): Ultrasound-guided right radial artery access Left heart catheterization with coronary angiography Attempted PCI to 100% left circumflex occlusion but wire did not pass easily indicating subacute nature of the stenosis. Given presence of right to left collateral filling the distal left circumflex artery and no chest pain further attempts were not made. Access Site: Right radial artery Brief History and Clinical Indications: All risks, benefits and alternatives to left heart catheterization with or without percutaneous coronary intervention was discussed at length with the patient. Risk of complications including but not limited to bleeding, infection, arrhythmia, stroke, worsening kidney function, blood loss, groin hematoma, limb loss, emergency coronary artery bypass grafting, and even were discussed with the patient and all questions were answered. The patient understood and wished to proceed. Time out called, patient name, date of , medical record number, allergies, procedure performed, identify Compliance Review Specialist, patient and staff member concurred with accurate data, procedure carried on. Findings: LEFT HEART CATHETERIZATION FINDINGS: 1. Left main: The left main coronary artery is widely patent without any significant obstructive disease. 2. Left anterior descending: The LAD and the diagonal branches have mild luminal irregularities without any significant obstructive angiographic disease. 3. Left circumflex: The proximal left circumflex artery has 100% stenosis. Distal vessel seen filling from right to left collaterals on RCA angiography. 4. Right coronary artery: The RCA is the dominant vessel. The proximal to mid RCA has 30-40% diffuse stenosis. The distal RCA has 40% stenosis just before the bifurcation of RPDA and RPLA. The RPDA and RPLA have mild luminal irregularities without any significant obstructive angiographic disease. There are [id number]-sgcg collaterals filling the distal left circumflex artery. 5. Left ventricle: A. End-diastolic pressure 18 mmHg. B. LV gram deferred. C. No significant gradient across aortic valve on catheter pullback. 6. Opening AO pressure 111/56/75 and closing AO pressure 115/53/77 mm Hg Description of Procedure: Informed consent signed and placed in the chart. Patient transferred to cathead worker room. Prepped and draped in usual sterile fashion. 2% lidocaine injected subcutaneously in right wrist area. 22-gauge venipuncture catheter used to access the right radial artery with the Seldinger technique. 6-FR slender sheath placed in right radial artery. Nitroglycerin 200mcg, Verapamil 2.5mg, and Heparin 5000U was given intraarterial through the sheath. J wire advanced under fluoroscopy 5 [place] JL 3.5 diagnostic catheter engaged Left Main Coronary Artery. 5 [place] JR4 diagnostic catheter engaged Right Coronary Artery Multiple orthogonal angiogram obtained and reviewed 5 [place] JR4 diagnostic catheter crossed aortic valve to obtain LVEDP, LV angiogram deferred. Hemostasis was achieved by application of TR band. Procedure Description for PCI: Heparin was used for anticoagulation (ACT maintained above 250) Patient loaded with heparin at 70 units/kg. 6 [place] EBU 3.5 guide catheter was used to intubate the left main. 0.014 runthrough coronary wire was passed in to the LAD to stabilize the guide. A 2nd 0.014 in runthrough wire was advanced into the proximal LCX to the region of 100% stenosis. Despite multiple attempts the wire did not cross the lesion. This suggested that the lesion was subacute or chronic rather than acute. Further attempts to advance the wire using advanced techniques were not attempted as patient was chest pain-free and there is a right to left collateral filling the distal LCX. The wires were removed from the body. Follow-up angiograms showed coronary artery disease as before. Guide-catheter was removed. Pre-procedure - LORRAINE 0 flow Post-procedure - LORRAINE 0 flow No angiographic complications identified. Assessment: NSTEMI Obstructive CAD with 100% stenosis of proximal LCX with [id number] collateral filling distal LCX. Nonobstructive CAD with 40% stenosis in proximal to mid RCA, 40% stenosis in distal RCA before bifurcation of RPDA and RPLA. Post Operative Condition: Stable No significant blood loss Disposition: Floor/Home Plan: The patient will be monitored in the recovery area. DAPT for 1 year followed by ASA indefinitely. Continue statin. Resume heparin after TR band is removed. Normal saline 1 L at 100 mL/hour. Check renal function in a.m.. If patient has chest pain in future, consider stress test to evaluate ischemia in the LCX territory and plan for LCX [employer] PCI. Continue aggressive medical therapy and risk factor modification.
[2025-03-12] MEDS: TAMSULOSIN HCL 0.4 MG CAPSULE PO (16:12)
[2025-03-12] MEDS: CLOPIDOGREL BISULFATE 300 MG TABLET PO (16:12)
[2025-03-12] MEDS: ATORVASTATIN 20 MG TABLET PO (20:25)
[2025-03-12 22:35] LABS: Partial Thromboplastin Time 96.6 Seconds (22.3-36.8)
[2025-03-13] VITALS (11 sets, daily range): BP systolic 114–125; BP diastolic 58–60; PULSE 44–68; RESP 16–20; TEMP 36.5–36.9; O2SAT 95–99
[2025-03-13 04:37] LABS: Hematocrit 37.6 % (42.0-52.0); Hemoglobin 12.1 g/dL (14.0-18.0); Immature Granulocyte Percent A 0.3 % (0-0.5); Lymphocytes Absolute Auto 0.91 K/mm3 (0.9-3.2); Mean Corpuscular HGB Conc 32.2 g/dl (32-36); Mean Corpuscular Hemoglobin 31.4 pg (26-34); Mean Corpuscular Volume 97.7 fl (80-100); Nucleated Red Blood Cells Absolute Auto 0.000 K/mm3 (0.0-0.012); Nucleated Red Blood Cells Perc 0.0 % (0.0-0.2); Platelet Count Result 223 k/mm3 (150-375); Red Blood Count 3.85 M/mm3 (4.6-6.20); White Blood Count 6.7 K/mm3 (4.5-10.0)
[2025-03-13 04:50] LABS: Partial Thromboplastin Time 90.4 Seconds (22.3-36.8)
[2025-03-13 05:01] LABS: Anion Gap 3 mmol/L (4-12); Blood Urea Nitrogen 16 mg/dL (9-20); Calcium 8.7 mg/dL (8.4-10.2); Carbon Dioxide 28 mmol/L (22-30); Chloride 104 mmol/L (98-107); Estimated CRCL calculation 58 ml/min; Estimated Glomerular Filt Rate > 60; Glucose 90 mg/dL (65-110); Potassium 4.1 mmol/L (3.4-5.0); Sodium 135 mmol/L (137-145)
--- NOTE | 2025-03-13 07:18 | PM.IMPN ---
Progress Note: A&P Assessment and Plan (1) Acute non-ST elevation myocardial infarction (NSTEMI): Code(s): I21.4 - Non-ST elevation (NSTEMI) myocardial infarction Status: Acute (2) Prediabetes: Code(s): R73.03 - Prediabetes Status: Acute (3) Hyperlipidemia: Qualifiers: Hyperlipidemia type: mixed hyperlipidemia Qualified Code(s): E78.2 - Mixed hyperlipidemia Code(s): E78.5 - Hyperlipidemia, unspecified Status: Acute (4) COPD (chronic obstructive pulmonary disease): Qualifiers: COPD type: unspecified COPD Qualified Code(s): J44.9 - Chronic obstructive pulmonary disease, unspecified Code(s): J44.9 - Chronic obstructive pulmonary disease, unspecified Status: Chronic (5) Nicotine dependence: Qualifiers: Nicotine product type: cigarettes Substance use status: uncomplicated Qualified Code(s): F17.210 - Nicotine dependence, cigarettes, uncomplicated Code(s): F17.200 - Nicotine dependence, unspecified, uncomplicated Status: Acute (6) Asymptomatic bradycardia: Code(s): R00.1 - Bradycardia, unspecified Status: Acute (7) Essential hypertension: Code(s): I10 - Essential (primary) hypertension Status: Acute Plan Patient with multiple risk factors including pre diabetes, essential hypertension, hyperlipidemia and continued tobacco use presented to the ER with substernal chest pain and elevated troponin/NSTEMI. S/P right radial cath 03/[address] Snell 03/12 TTE 1. Complete two-dimensional, color flow and Doppler transthoracic echocardiogram is performed. 2. Mild left ventricular systolic dysfunction, posterior akinesia, inferior hypokinesia, ejection fraction 50%. 3. Moderate left atrial dilation. 4. Sclerotic aortic valve with adequate leaflet separation. 5. Mild MR. 03/13 Cardiac Cath Right radial artery cardiac cath 1. Left main: The left main coronary artery is widely patent without any significant obstructive disease. 2. Left anterior descending: The LAD and the diagonal branches have mild luminal irregularities without any significant obstructive angiographic disease. 3. Left circumflex: The proximal left circumflex artery has 100% stenosis. Distal vessel seen filling from right to left collaterals on RCA angiography. 4. Right coronary artery: The RCA is the dominant vessel. The proximal to mid RCA has 30-40% diffuse stenosis. The distal RCA has 40% stenosis just before the bifurcation of RPDA and RPLA. The RPDA and RPLA have mild luminal irregularities without any significant obstructive angiographic disease. There are cdueu-if-wtra collaterals filling the distal left circumflex artery. 5. Left ventricle: A. End-diastolic pressure 18 mmHg. B. LV gram deferred. C. No significant gradient across aortic valve on catheter pullback. 6. Opening AO pressure 111/56/75 and closing AO pressure 115/53/77 mm Hg NSTEMI s/p cardiac cath CAD S/p cath above --continue statin --Continue ASA/Plavix. Patient reporting concern about taking aspirin plavix and xarelto due to easy bleeding/bruising. He had been alternating aspirin and xarelto at home every other day. Discuss with cardiology today --Follow up with cardiology outpatient --Discussed increasing activity. Could consider cardiac rehab --add on lipid panel and HgbA1c Bradycardia Bradycardic, 30's-50's frequently. Asymptomatic --Monitoring Hx Afib Episode of afib with RVR 2019, converted with IV diltiazem [facility], Dr. Armijo Home Xarelto, takes inconsistently. Last dose reported 03/10 --on a heparin drip. Resume xarelto when ok with cardiology HTN Lisinopril on hold post cath Bradycardia on tele, avoiding beta blockers Wheezing Resolved Duonebs prn MEDICAL DECISION MAKING NARRATIVE -Collaborated with patient's nurse at the bedside in detail and addressed all concerns -Labs, electrolytes, radiology, investigations and test results personally reviewed and interpreted unless otherwise specified -Consult/Nursing/Ancilliary notes on the chart reviewed and appreciated -Spoke with patient at bedside and diagnosis and plan of care was discussed. All questions answered. Time Spent With Patient Time: 57 minutes Subjective Date/time seen: 03/13/25 09:25 Interval history: HR 30's-50's, BP soft, 120/59 s/p cardiac cath 03/13 Walked around the unit and not feeling short of breath or having chest pain Review of Systems Review of Systems: 12 systems were reviewed with pertinent positives and negatives per HPI. Except as documented in the HPI, all other systems were reviewed and are negative. He reports significant weight loss since he was started on testosterone [employer] prostate cancer. With associated loss of muscle mass that would be expected with loss of testosterone. Exam Narrative: Weight 78.5 kg BMI 24.8 General - Awake and alert. No acute distress Eyes - PERRLA, EOM intact ENT - No thrush, No erythema Neck - No noticeable or palpable swelling Lymph Nodes - No lymphadenopathy Cardiovascular - RRR no m/r/g, no JVD Lungs: Clear to auscultation, No wheezing, use of accessory muscles, no crackles Skin - Skin warm and dry, no wounds or rashes Abdomen - Normal bowel sounds, abdomen soft and nontender Extremities - No edema, cyanosis or clubbing. Mild bruising to right wrist. No bleeding Musculoskeletal - 5/5 strength, normal range of motion, no swollen or erythematous joints. Neurological ? Alert and oriented x 3, CN 2-12 grossly intact. Psych: Normal mood and affect Objective Data Vital Signs Vital Signs: Vital Signs - 24 hr 03/12/25 08:00 03/12/25 08:00 03/12/25 08:00 Temperature 98.4 F Pulse Rate 40 L 55 L Pulse Rate [Right Radial] Respiratory Rate 17 Blood Pressure 103/52 L Pulse Oximetry 97 99 Oxygen Delivery Room Air 03/12/25 10:00 03/12/25 11:45 03/12/25 11:45 Temperature Pulse Rate 41 L 52 L Pulse Rate [Right Radial] 42 L Respiratory Rate 15 Blood Pressure 103/52 L Pulse Oximetry 96 Oxygen Delivery Room Air 03/12/25 12:00 03/12/25 12:00 03/12/25 12:15 Temperature Pulse Rate 41 L 40 L Pulse Rate [Right Radial] 41 L Respiratory Rate 19 18 Blood Pressure 107/61 103/61 Pulse Oximetry 97 95 Oxygen Delivery Room Air Room Air 03/12/25 12:15 03/12/25 12:30 03/12/25 12:30 Temperature Pulse Rate 46 L Pulse Rate [Right Radial] 40 L 46 L Respiratory Rate 16 Blood Pressure 99/79 L Pulse Oximetry 98 Oxygen Delivery Room Air 03/12/25 12:45 03/12/25 12:45 03/12/25 13:00 Temperature Pulse Rate 46 L Pulse Rate [Right Radial] 46 L 52 L Respiratory Rate 15 Blood Pressure 114/60 Pulse Oximetry 96 Oxygen Delivery Room Air 03/12/25 13:00 03/12/25 13:15 03/12/25 13:15 Temperature Pulse Rate 52 L 47 L Pulse Rate [Right Radial] 47 L Respiratory Rate 16 19 Blood Pressure 105/69 112/77 Pulse Oximetry 98 100 Oxygen Delivery Room Air Room Air 03/12/25 13:30 03/12/25 13:30 03/12/25 13:45 Temperature Pulse Rate 43 L 45 L Pulse Rate [Right Radial] 43 L Respiratory Rate 18 14 Blood Pressure 112/76 103/64 Pulse Oximetry 99 95 Oxygen Delivery Room Air Room Air 03/12/25 13:45 03/12/25 14:00 03/12/25 14:00 Temperature Pulse Rate 46 L Pulse Rate [Right Radial] 45 L 46 L Respiratory Rate 17 Blood Pressure 110/59 L Pulse Oximetry 97 Oxygen Delivery Room Air 03/12/25 14:15 03/12/25 14:15 03/12/25 14:30 Temperature Pulse Rate 47 L 45 L Pulse Rate [Right Radial] 47 L Respiratory Rate 12 21 H Blood Pressure 132/54 L 108/76 Pulse Oximetry 99 98 Oxygen Delivery Room Air Room Air 03/12/25 14:30 03/12/25 14:45 03/12/25 14:45 Temperature Pulse Rate 47 L Pulse Rate [Right Radial] 45 L 47 L Respiratory Rate 17 Blood Pressure 114/48 L Pulse Oximetry 98 Oxygen Delivery Room Air 03/12/25 15:00 03/12/25 15:00 03/12/25 15:15 Temperature Pulse Rate 43 L 46 L Pulse Rate [Right Radial] 43 L Respiratory Rate 18 14 Blood Pressure 104/52 L 110/52 L Pulse Oximetry 97 99 Oxygen Delivery Room Air Room Air 03/12/25 15:15 03/12/25 15:30 03/12/25 15:30 Temperature Pulse Rate 44 L Pulse Rate [Right Radial] 46 L 44 L Respiratory Rate 20 Blood Pressure 133/59 L Pulse Oximetry 96 Oxygen Delivery Room Air 03/12/25 16:00 03/12/25 16:00 03/12/25 16:00 Temperature 98.2 F Pulse Rate 50 L 48 L Pulse Rate [Right Radial] Respiratory Rate 16 Blood Pressure 130/55 L Pulse Oximetry 99 99 Oxygen Delivery Room Air 03/12/25 17:44 03/12/25 18:00 03/12/25 18:54 Temperature 98.2 F 98.3 F Pulse Rate 47 L 54 L 52 L Pulse Rate [Right Radial] Respiratory Rate 16 18 Blood Pressure 137/65 132/64 Pulse Oximetry 97 99 Oxygen Delivery 03/12/25 20:00 03/12/25 20:13 03/12/25 20:20 Temperature 98.4 F Pulse Rate 52 L 51 L Pulse Rate [Right Radial] Respiratory Rate 20 Blood Pressure 124/63 Pulse Oximetry 98 Oxygen Delivery Room Air 03/12/25 22:00 03/13/25 00:00 03/13/25 00:30 Temperature Pulse Rate 44 L 48 L Pulse Rate [Right Radial] Respiratory Rate Blood Pressure Pulse Oximetry Oxygen Delivery Room Air 03/13/25 00:43 03/13/25 02:00 03/13/25 04:00 Temperature 98.2 F Pulse Rate 52 L 45 L Pulse Rate [Right Radial] Respiratory Rate 20 Blood Pressure 120/60 Pulse Oximetry 99 Oxygen Delivery Room Air 03/13/25 04:00 03/13/25 04:17 03/13/25 06:00 Temperature 98.0 F Pulse Rate 50 L 54 L 63 Pulse Rate [Right Radial] Respiratory Rate 20 Blood Pressure 114/58 L Pulse Oximetry 95 Oxygen Delivery Intake/Output Intake/Output: Intake & Output 03/10/25 03/11/25 03/12/25 03/13/25 23:59 23:59 23:59 23:59 Intake Total 759.3 408.8 Output Total 150 225 Balance 609.3 183.8 Meds/Results Medications: Active Medications Generic Name Dose Route Start Last Admin Trade Name Freq PRN Reason Stop Dose Admin Acetaminophen 650 mg 03/12/25 01:45 Acetaminophen 325 Mg Tablet PO Q4H PRN Mild Pain (1-3) or Fever Albuterol/Ipratropium 3 ml 03/12/25 04:31 Ipratropium 0.5 Mg/Albuterol Sulfate 2.5 Mg Ampul.Neb 3 Ml INHALATION Q6HRT PRN Shortness Of Breath Aspirin 81 mg 03/12/25 09:00 03/12/25 08:53 Aspirin 81 Mg Enteric Tablet PO 81 mg [facility] Administration Atorvastatin Calcium 20 mg 03/12/25 21:00 03/12/25 20:25 Atorvastatin 20 Mg Tablet PO 20 mg QHS BENIGNO Administration Clopidogrel Bisulfate 75 mg 03/13/25 09:00 Clopidogrel Bisulfate 75 Mg Tablet PO [facility] Heparin Sodium (Porcine) 4,000 units 03/12/25 03:10 Heparin Sodium 5,000 Units/Ml Vial IV PUSH PRN PRN aPTT less than 55 seconds Heparin Sodium (Porcine) 3,000 units 03/12/25 03:10 Heparin Sodium 5,000 Units/Ml Vial IV PUSH PRN PRN aPTT 55 - 70 seconds Heparin Sodium/Dextrose 25,000 units in 250 mls @ 9 mls/hr 03/12/25 03:10 03/13/25 05:26 Heparin Sodium/D5w 100 Units/Ml IV CONT 900 units/hr .Q24H BENIGNO 9 mls/hr Protocol Titration 900 UNITS/HR Isosorbide Mononitrate 30 mg 03/13/25 09:00 Isosorbide Mononitrate 30 Mg Tab.Er.24h PO [facility] Lisinopril 10 mg 03/12/25 09:00 Lisinopril 10 Mg Tablet PO On Hold: 03/12/25 09:00 [facility] [place]itroglycerin 0.4 mg 03/12/25 01:45 03/12/25 05:55 Nitroglycerin Sl 0.4 Mg Tablet SUBLINGUAL 0.4 mg Q5MIN PRN Administration Chest Pain Nitroglycerin 0.4 mg 03/12/25 14:11 Nitroglycerin Sl 0.4 Mg Tablet SUBLINGUAL Q5MIN PRN Chest Pain Perflutren Lipid Microsphere 0 ml 03/12/25 09:53 Perflutren Lipid Microspheres 1.5 Ml Vial Diluted To 10 Ml Total Volume IV PUSH 03/15/25 09:53 ONCE PRN adequate visualization Protocol Tamsulosin HCl 0.4 mg 03/12/25 17:00 03/12/25 16:12 Tamsulosin Hcl 0.4 Mg Capsule PO 0.4 mg DAILY BENIGNO Administration Radiology Results: ITS Impressions Chest X-Ray 03/12/25 08:48 IMPRESSION: 1. No acute cardiopulmonary findings given portable technique. Labs Labs: Laboratory Results - last 24 hr 03/12/25 03/12/25 03/12/25 09:18 11:28 22:12 WBC RBC Hgb Hct MCV MCH MCHC RDW Plt Count MPV Immature Gran % (Auto) Neut % (Auto) Lymph % (Auto) [place] % (Auto) Eos % (Auto) Baso % (Auto) Lymph # (Auto) [place] # (Auto) Eos # (Auto) Baso # (Auto) Abs Immat Gran (auto) Absolute Neuts (auto) Absolute Nucleated RBC Nucleated RBC % APTT 125.1 H 96.6 H Activ Coag Time Kaolin 268 H Sodium Potassium Chloride Carbon Dioxide Anion Gap BUN Creatinine Estim Creat Clear Calc Estimated GFR Glucose Calcium Troponin I 7.520 H* D TSH 1.670 03/13/25 04:25 WBC 6.7 RBC 3.85 L Hgb 12.1 L Hct 37.6 L MCV 97.7 MCH 31.4 MCHC 32.2 RDW 14.6 H Plt Count 223 MPV 10.2 Immature Gran % (Auto) 0.3 Neut % (Auto) 67.8 Lymph % (Auto) 13.5 L [place] % (Auto) 11.4 H Eos % (Auto) 6.4 H Baso % (Auto) 0.6 Lymph # (Auto) 0.91 [place] # (Auto) 0.8 H Eos # (Auto) 0.4 H Baso # (Auto) 0.0 Abs Immat Gran (auto) 0.02 Absolute Neuts (auto) 4.6 Absolute Nucleated RBC 0.000 Nucleated RBC % 0.0 APTT 90.4 H Activ Coag Time Kaolin Sodium 135 L Potassium 4.1 Chloride 104 Carbon Dioxide 28 Anion Gap 3 L BUN 16 Creatinine 0.95 Estim Creat Clear Calc 58 Estimated GFR > 60 Glucose 90 Calcium 8.7 Troponin I TSH Quality VTE Prophylaxis VTE prophylaxis: pharmacologic ordered (He heparin drip per protocol.) Hospitalist MIPS Advance Care Plan I have confirmed that the patient's Advanced Care Plan is present, code status is documented, or surrogate decision maker is listed in patient medical record.: Yes Medication Reconciliation I have utilized all available resources to obtain, update and review the patients current medications (includes all prescriptions, OTC, herbals, cannabis, and nutritional supplements).: Yes
[2025-03-13] MEDS: ISOSORBIDE MONONITRATE 30 MG TAB.ER.24H PO (10:26)
[2025-03-13] MEDS: ASPIRIN 81 MG ENTERIC TABLET PO (10:26)
[2025-03-13] MEDS: CLOPIDOGREL BISULFATE 75 MG TABLET PO (10:26)
[2025-03-13] MEDS: TAMSULOSIN HCL 0.4 MG CAPSULE PO (10:27)
[2025-03-13 10:55] LABS: Cholesterol 111 mg/dL (0-200); HDL Direct 43 mg/dL; Triglycerides 80 mg/dL (<150)
[2025-03-13 11:20] LABS: Hemoglobin A1C 5.8 % (<5.7)
--- NOTE | 2025-03-13 12:02 | P.PNCA_ITS ---
Progress Note: A&P Assessment and Plan (1) Acute non-ST elevation myocardial infarction (NSTEMI): Code(s): I21.4 - Non-ST elevation (NSTEMI) myocardial infarction Status: Acute Plan NSTEMI subacute occlusion of circumflex unsuccessful attempt for PCI currently asymptomatic Low normal left ventricular systolic function was wall motion abnormalities consistent with left circumflex occlusion Hypertension controlled Proximal atrial fibrillation Plan Aspirin Plavix for 4 weeks then stop the aspirin and continue Plavix Resume Xarelto 20 mg daily in AM Lisinopril hydrochlorothiazide Statin Patient can be discharged from cardiac standpoint follow-up in the clinic Subjective Date/time seen: 03/13/25 12:02 Interval history: Patient seen today for evaluation of chest pain and an NSTEMI No acute events overnight Telemetry sinus rhythm Review of Systems Review of Systems: All systems reviewed & are unremarkable except as noted in HPI and below Exam Const: General: comfortable and no acute distress Other: Able to lie flat HENMT: Face/Nose/Sinus: Normal nares present and no epistaxis Mouth: Yes moist mucous membranes Eyes: Sclera: sclerae normal Pupils: Equal, round and reactive pupils present Neck: Neck: supple and no JVD Carotids: no bruits Resp: Auscultation: clear to auscultation bilaterally and lung sounds not diminished Other: No chest wall tenderness Cardio: Rate: regular rate Rhythm: regular rhythm Heart sounds: no gallops, no murmurs and no rubs GI: GI Palp: Yes Soft to palpation and No Tenderness to palpation present (GI) Auscultation: normal bowel sounds Skin: General skin exam: normal color, rashes and/or lesions noted and no erythema Other: Warm Neuro: Cranial nerves: Yes Equal, round and reactive pupils present Speech: normal speech Other: No obvious focal deficit or facial asymmetry Extrem: General: no edema Other: Normal capillary refills Intact distal pulses. Objective Data Vital Signs Vital Signs: Vital Signs - 24 hr 03/12/25 12:15 03/12/25 12:15 03/12/25 12:30 Temperature Pulse Rate 40 L Pulse Rate [Right Radial] 40 L 46 L Respiratory Rate 18 Blood Pressure 103/61 Pulse Oximetry 95 Oxygen Delivery Room Air 03/12/25 12:30 03/12/25 12:45 03/12/25 12:45 Temperature Pulse Rate 46 L 46 L Pulse Rate [Right Radial] 46 L Respiratory Rate 16 15 Blood Pressure 99/79 L 114/60 Pulse Oximetry 98 96 Oxygen Delivery Room Air Room Air 03/12/25 13:00 03/12/25 13:00 03/12/25 13:15 Temperature Pulse Rate 52 L 47 L Pulse Rate [Right Radial] 52 L Respiratory Rate 16 19 Blood Pressure 105/69 112/77 Pulse Oximetry 98 100 Oxygen Delivery Room Air Room Air 03/12/25 13:15 03/12/25 13:30 03/12/25 13:30 Temperature Pulse Rate 43 L Pulse Rate [Right Radial] 47 L 43 L Respiratory Rate 18 Blood Pressure 112/76 Pulse Oximetry 99 Oxygen Delivery Room Air 03/12/25 13:45 03/12/25 13:45 03/12/25 14:00 Temperature Pulse Rate 45 L 46 L Pulse Rate [Right Radial] 45 L Respiratory Rate 14 17 Blood Pressure 103/64 110/59 L Pulse Oximetry 95 97 Oxygen Delivery Room Air Room Air 03/12/25 14:00 03/12/25 14:15 03/12/25 14:15 Temperature Pulse Rate 47 L Pulse Rate [Right Radial] 46 L 47 L Respiratory Rate 12 Blood Pressure 132/54 L Pulse Oximetry 99 Oxygen Delivery Room Air 03/12/25 14:30 03/12/25 14:30 03/12/25 14:45 Temperature Pulse Rate 45 L 47 L Pulse Rate [Right Radial] 45 L Respiratory Rate 21 H 17 Blood Pressure 108/76 114/48 L Pulse Oximetry 98 98 Oxygen Delivery Room Air Room Air 03/12/25 14:45 03/12/25 15:00 03/12/25 15:00 Temperature Pulse Rate 43 L Pulse Rate [Right Radial] 47 L 43 L Respiratory Rate 18 Blood Pressure 104/52 L Pulse Oximetry 97 Oxygen Delivery Room Air 03/12/25 15:15 03/12/25 15:15 03/12/25 15:30 Temperature Pulse Rate 46 L 44 L Pulse Rate [Right Radial] 46 L Respiratory Rate 14 20 Blood Pressure 110/52 L 133/59 L Pulse Oximetry 99 96 Oxygen Delivery Room Air Room Air 03/12/25 15:30 03/12/25 16:00 03/12/25 16:00 Temperature 36.8 C Pulse Rate 50 L Pulse Rate [Right Radial] 44 L Respiratory Rate 16 Blood Pressure 130/55 L Pulse Oximetry 99 99 Oxygen Delivery Room Air 03/12/25 16:00 03/12/25 17:44 03/12/25 18:00 Temperature 36.8 C Pulse Rate 48 L 47 L 54 L Pulse Rate [Right Radial] Respiratory Rate 16 Blood Pressure 137/65 Pulse Oximetry 97 Oxygen Delivery 03/12/25 18:54 03/12/25 20:00 03/12/25 20:13 Temperature 36.8 C 36.9 C Pulse Rate 52 L 52 L 51 L Pulse Rate [Right Radial] Respiratory Rate 18 20 Blood Pressure 132/64 124/63 Pulse Oximetry 99 98 Oxygen Delivery 03/12/25 20:20 03/12/25 22:00 03/13/25 00:00 Temperature Pulse Rate 44 L 48 L Pulse Rate [Right Radial] Respiratory Rate Blood Pressure Pulse Oximetry Oxygen Delivery Room Air 03/13/25 00:30 03/13/25 00:43 03/13/25 02:00 Temperature 36.8 C Pulse Rate 52 L 45 L Pulse Rate [Right Radial] Respiratory Rate 20 Blood Pressure 120/60 Pulse Oximetry 99 Oxygen Delivery Room Air 03/13/25 04:00 03/13/25 04:00 03/13/25 04:17 Temperature 36.7 C Pulse Rate 50 L 54 L Pulse Rate [Right Radial] Respiratory Rate 20 Blood Pressure 114/58 L Pulse Oximetry 95 Oxygen Delivery Room Air 03/13/25 06:00 03/13/25 07:57 03/13/25 08:51 Temperature 36.5 C 36.9 C Pulse Rate 63 44 L 61 Pulse Rate [Right Radial] Respiratory Rate 20 18 Blood Pressure 120/59 L 119/60 Pulse Oximetry 95 95 Oxygen Delivery 03/13/25 11:27 Temperature 36.8 C Pulse Rate 61 Pulse Rate [Right Radial] Respiratory Rate 16 Blood Pressure 125/59 L Pulse Oximetry 96 Oxygen Delivery Intake/Output Intake/Output: Intake & Output 03/10/25 03/11/25 03/12/25 03/13/25 23:59 23:59 23:59 23:59 Intake Total 759.3 648.8 Output Total 150 375 Balance 609.3 273.8 Meds/Results Medications: Active Medications Generic Name Dose Route Start Last Admin Trade Name Freq PRN Reason Stop Dose Admin Acetaminophen 650 mg 03/12/25 01:45 Acetaminophen 325 Mg Tablet PO Q4H PRN Mild Pain (1-3) or Fever Albuterol/Ipratropium 3 ml 03/12/25 04:31 Ipratropium 0.5 Mg/Albuterol Sulfate 2.5 Mg Ampul.Neb 3 Ml INHALATION Q6HRT PRN Shortness Of Breath Aspirin 81 mg 03/12/25 09:00 03/13/25 10:26 Aspirin 81 Mg Enteric Tablet [facility] Administration Atorvastatin Calcium 20 mg 03/12/25 21:00 03/12/25 20:25 Atorvastatin 20 Mg Tablet PO 20 mg QHS [facility] Administration Clopidogrel Bisulfate 75 mg 03/13/25 09:00 03/13/25 10:26 Clopidogrel Bisulfate 75 Mg Tablet PO [facility] [place] Administration Heparin Sodium (Porcine) 4,000 units 03/12/25 03:10 Heparin Sodium 5,000 Units/Ml Vial IV PUSH PRN PRN aPTT less than 55 seconds Heparin Sodium (Porcine) 3,000 units 03/12/25 03:10 Heparin Sodium 5,000 Units/Ml Vial IV PUSH PRN PRN aPTT 55 - 70 seconds Heparin Sodium/Dextrose 25,000 units in 250 mls @ 9 mls/hr 03/12/25 03:10 03/13/25 05:26 Heparin Sodium/D5w 100 Units/Ml IV CONT 900 units/hr .Q24H BENIGNO 9 mls/hr Protocol Titration 900 UNITS/HR Isosorbide Mononitrate 30 mg 03/13/25 09:00 03/13/25 10:26 Isosorbide Mononitrate 30 Mg Tab.Er.24h PO [address] [facility] Administration Lisinopril 10 mg 03/12/25 09:00 Lisinopril 10 Mg Tablet PO On Hold: 03/12/25 09:00 [facility] Nitroglycerin 0.4 mg 03/12/25 01:45 03/12/25 05:55 Nitroglycerin Sl 0.4 Mg Tablet SUBLINGUAL 0.4 mg Q5MIN PRN Administration Chest Pain Nitroglycerin 0.4 mg 03/12/25 14:11 Nitroglycerin Sl 0.4 Mg Tablet SUBLINGUAL Q5MIN PRN Chest Pain Perflutren Lipid Microsphere 0 ml 03/12/25 09:53 Perflutren Lipid Microspheres 1.5 Ml Vial Diluted To 10 Ml Total Volume IV PUSH 03/15/25 09:53 ONCE PRN adequate visualization Protocol Tamsulosin HCl 0.4 mg 03/12/25 17:00 03/13/25 10:27 Tamsulosin Hcl 0.4 Mg Capsule PO 0.4 mg DAILY BENIGNO Administration Radiology Results: ITS Impressions Chest X-Ray 03/12/25 08:48 IMPRESSION: 1. No acute cardiopulmonary findings given portable technique. Labs Labs: Laboratory Results - last 24 hr 03/12/25 03/12/25 03/13/25 11:28 22:12 04:25 WBC 6.7 RBC 3.85 L Hgb 12.1 L Hct 37.6 L MCV 97.7 MCH 31.4 MCHC 32.2 RDW 14.6 H Plt Count 223 MPV 10.2 Immature Gran % (Auto) 0.3 Neut % (Auto) 67.8 Lymph % (Auto) 13.5 L [place] % (Auto) 11.4 H Eos % (Auto) 6.4 H Baso % (Auto) 0.6 Lymph # (Auto) 0.91 [place] # (Auto) 0.8 H Eos # (Auto) 0.4 H Baso # (Auto) 0.0 Abs Immat Gran (auto) 0.02 Absolute Neuts (auto) 4.6 Absolute Nucleated RBC 0.000 Nucleated RBC % 0.0 APTT 96.6 H 90.4 H Activ Coag Time Kaolin 268 H Sodium 135 L Potassium 4.1 Chloride 104 Carbon Dioxide 28 Anion Gap 3 L BUN 16 Creatinine 0.95 Estim Creat Clear Calc 58 Estimated GFR > 60 Glucose 90 Hemoglobin A1c 5.8 H Calcium 8.7 Triglycerides 80 Cholesterol 111 LDL Cholesterol Direct 48 HDL Direct 43
--- NOTE | 2025-03-13 12:35 | PM.DS ---
DS: Admitting Diagnosis Discharge Date 03/13/2025 Admitting Diagnosis NSTEMI DS: Discharge Diagnosis Discharge Diagnosis (1) Acute non-ST elevation myocardial infarction (NSTEMI): Code(s): I21.4 - Non-ST elevation (NSTEMI) myocardial infarction Status: Acute (2) CAD in [place] artery: Code(s): I25.10 - Atherosclerotic heart disease of [place] coronary artery without angina pectoris Status: Acute (3) Occlusion of left circumflex coronary artery: Code(s): I24.0 - Acute coronary thrombosis not resulting in myocardial infarction Status: Acute DS: Summary Hospital Course Reason for hospitalization: Copied from [facility] 03/13: 79-year-old male with a past medical history coronary artery disease with right coronary stent October 2009, chronic tobacco abuse, essential hypertension paroxysmal atrial fibrillation, prostate cancer, BPH and Raynaud's disease who presented to the ER with central chest pain. He reported he began having some chest discomfort yesterday thought was related to heartburn. He reports the pain was burning aching and pressure-like in nature. He was 7/10 in intensity. It initially occurred on the and lasted for about 2 hours. It occurred while he was working in the yard. The pain recurred on the evening of the it happened while he was working in the garage. The pain was unrelieved despite rest. The He has been taking his home 81 mg aspirin, atorvastatin and lisinopril as directed. 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 He was noted to be wheezing in the ER but patient reports that is asymptomatic from this perspective. He denies any shortness of breath cough or congestion. He refused a nebulizer treatment. He did receive a dose of morphine in the ER which resolved this chest pain but developed a headache following the morphine administration. At the time my evaluation the patient admits that he has had recurrence of his chest pain. He reports that within the last few minutes he has also developed a squeezing pain in his anterior neck which is new. Following my evaluation the patient received a dose of sublingual nitro with rapid resolution of his chest pain. He denies any associated lightheadedness, dizziness, diaphoresis, orthopnea or paroxysmal nocturnal dyspnea. He has chronic cough with frequent production of mucus in the morning. He still smokes 1 pack of cigarettes per day. He almost never uses his rescue inhaler. He has not noticed any increased wheezing. He denies palpitations. He has not had any lower extremity swelling. Hospital Course: Patient with multiple risk factors including pre diabetes, essential hypertension, hyperlipidemia and continued tobacco use presented to the ER with substernal chest pain and elevated troponin/NSTEMI. S/P right radial cath 03/[address] Snell 03/12 TTE 1. Complete two-dimensional, color flow and Doppler transthoracic echocardiogram is performed. 2. Mild left ventricular systolic dysfunction, posterior akinesia, inferior hypokinesia, ejection fraction 50%. 3. Moderate left atrial dilation. 4. Sclerotic aortic valve with adequate leaflet separation. 5. Mild MR. 03/13 Cardiac Cath Right radial artery cardiac cath 1. Left main: The left main coronary artery is widely patent without any significant obstructive disease. 2. Left anterior descending: The LAD and the diagonal branches have mild luminal irregularities without any significant obstructive angiographic disease. 3. Left circumflex: The proximal left circumflex artery has 100% stenosis. Distal vessel seen filling from right to left collaterals on RCA angiography. 4. Right coronary artery: The RCA is the dominant vessel. The proximal to mid RCA has 30-40% diffuse stenosis. The distal RCA has 40% stenosis just before the bifurcation of RPDA and RPLA. The RPDA and RPLA have mild luminal irregularities without any significant obstructive angiographic disease. There are [id number] collaterals filling the distal left circumflex artery. 5. Left ventricle: A. End-diastolic pressure 18 mmHg. B. LV gram deferred. C. No significant gradient across aortic valve on catheter pullback. 6. Opening AO pressure 111/56/75 and closing AO pressure 115/53/77 mm Hg s/p cardiac cath CAD S/p cath above Patient concerned about taking aspirin plavix and xarelto due to easy bleeding/bruising. He had been alternating aspirin and xarelto at home every other day. Monitor for bleeding HgbA1c 5.8 and lipid panel normal --continue statin, increased from Atorvastatin 20 to 40mg daily --Continue ASA/Plavix. Can stop plavix after 1 month --Follow up with cardiology outpatient --Discussed increasing activity. Could consider cardiac rehab Bradycardia Bradycardic, 30's-50's frequently. Asymptomatic Hx Afib Episode of afib with RVR 2019, converted with IV diltiazem [facility], Dr. Armijo Home Xarelto, takes inconsistently. Last dose reported 03/10 --on a heparin drip during admission. Resumed xarelto on the day of discharge HTN Lisinopril on hold post cath, resumed for discharge with HCTZ Bradycardia on tele, avoiding beta blockers Wheezing Resolved Duonebs prn Status at Discharge Cognitive/behavioral status at discharge: A&Ox3 Time Spent with Patient Time attestation: Total time spent providing and/or coordinating discharge services: 57 minutes Exam Narrative: General - Awake and alert. No acute distress Eyes - PERRLA, EOM intact ENT - No thrush, No erythema Neck - No noticeable or palpable swelling Lymph Nodes - No lymphadenopathy Cardiovascular - RRR no m/r/g, no JVD Lungs: Clear to auscultation, No wheezing, use of accessory muscles, no crackles Skin - Skin warm and dry, no wounds or rashes Right wrist minimal bruising, no bleeding or hematoma Abdomen - Normal bowel sounds, abdomen soft and nontender Extremities - No edema, cyanosis or clubbing Musculoskeletal - 5/5 strength, normal range of motion, no swollen or erythematous joints. Neurological ? Alert and oriented x 3, CN 2-12 grossly intact. Psych: Normal mood and affect DS: Data Data Completed and Pending Labs on day of discharge: Labs from last 24 hours 03/13/25 03/12/25 03/12/25 04:25 22:12 11:28 WBC 6.7 RBC 3.85 L Hgb 12.1 L Hct 37.6 L MCV 97.7 MCH 31.4 MCHC 32.2 RDW 14.6 H Plt Count 223 MPV 10.2 Immature Gran % (Auto) 0.3 Neut % (Auto) 67.8 Lymph % (Auto) 13.5 L [place] % (Auto) 11.4 H Eos % (Auto) 6.4 H Baso % (Auto) 0.6 Lymph # (Auto) 0.91 [place] # (Auto) 0.8 H Eos # (Auto) 0.4 H Baso # (Auto) 0.0 Abs Immat Gran (auto) 0.02 Absolute Neuts (auto) 4.6 Absolute Nucleated RBC 0.000 Nucleated RBC % 0.0 APTT 90.4 H 96.6 H Activ Coag Time Kaolin 268 H Sodium 135 L Potassium 4.1 Chloride 104 Carbon Dioxide 28 Anion Gap 3 L BUN 16 Creatinine 0.95 Estim Creat Clear Calc 58 Estimated GFR > 60 Glucose 90 Hemoglobin A1c 5.8 H Calcium 8.7 Triglycerides 80 Cholesterol 111 LDL Cholesterol Direct 48 HDL Direct 43 Discharge Plan Discharge Attending physician on discharge: Vandana Marie Consulting providers: Vandana Marie; Yuliya Mandel Discharging Clinician: Vandana Marie Anticipated Discharge Date/Time: 03/13/25 12:32 Patient Disposition: Home Activity: may shower Diet: heart healthy Discharge Instructions: Follow up with your PCP in 1-2 weeks. Follow up with cardiology in the clinic You will continue Aspirin and plavix for 4 weeks and then you will stop aspirin and continue plavix Resume Xarelto in the morning. Started Isosorbide to prevent chest pain. Increased atorvastatin to high dose Patient Instructions: Antibiotic Form, Heart Attack (GEN), Chest Pain (GEN), Heart Healthy Diet (GEN), High Troponin Levels (GEN) Patient Language: Kazakh Stand Alone Forms: General Discharge Information Follow-up/Referrals: Daniel Camilo MD [Physician, Cardiology] - 1 Week Referral Note: Discharge Medications: New clopidogrel 75 mg Tablet 75 mg PO QAM Qty: 90 0RF atorvastatin [Lipitor] 40 mg tablet 40 mg PO HS Qty: 30 0RF isosorbide mononitrate 30 mg Tablet Extended Release 24 Hr 30 mg PO QAM Qty: 30 0RF nitroglycerin [Nitrostat] 0.4 mg Tablet, Sublingual 0.4 mg sublingual Q5MIN PRN (Reason: Chest Pain) Qty: 30 0RF aspirin 81 mg Tablet,Delayed Release (Dr/Ec) 81 mg PO QAM Qty: 30 0RF Continued potassium gluconate 595 mg (99 mg) tablet 595 mg PO DAILY Adult 50 Plus Probiotic 4 billion cell capsule 8,000 mmu cells PO DAILY Rx Instructions: administer with a meal tamsulosin 0.4 mg capsule 0.4 mg PO DAILY Xarelto 20 mg tablet 20 mg PO DAILY Qty: 30 3RF Patient Comments: takes every other day because if he takes daily will bruise and bleed to easily Rx Instructions: must administer with evening meal ipratropium-albuterol 0.5 mg-3 mg(2.5 mg base)/3 mL solution for nebulization 3 ml inhalation QID PRN (Reason: shortness of breath) Qty: 270 5RF lisinopril-hydrochlorothiazide 20-12.5 mg tablet 0.5 tablet PO DAILY Qty: 45 1RF Patient Comments: acosta not take this med because it made him dizzy but had chest pain so took a dose before coming to the er Rx Instructions: TAKE 1/2 TABLET BY MOUTH EVERY DAY Changed aspirin [Adult Low Dose Aspirin] 81 mg tablet,delayed release (DR/EC) 81 mg PO DAILY Qty: 30 0RF Rx Instructions: 81 mg PO every other day; Discontinued atorvastatin 20 mg tablet 20 mg PO QHS Qty: 90 1RF Date of admission: 03/12/25 01:45 Primary Care Provider: Luci Carson Admitting Provider: Hina Montiel Attending physician on admission: Hina Montiel Condition: Serious Quality VTE Prophylaxis VTE prophylaxis: pharmacologic ordered Hospitalist MIPS Heart Failure (Exclusion) Patient has history of Heart Transplant or Left Ventricular Assistive Device?: No IF YES, STOP HERE Heart Failure (Qualifier) Patient has current or prior documentation of LVEF less than or equal to 40%, or mod/servere depressed LVSF?: No IF NO, STOP HERE
--- NOTE | 2025-03-13 14:13 | PC.NURSE ---
On 03/13/25, the student, Barbara Sanders, provided care and completed [facility] documentation on this patient. I have reviewed the student's documentation and agree with the findings.
== END 2025-03-13 14:00 | disposition home or self-care (01) | DRG 282 ==
LOC: ANHED 03-12 01:44 → ANHIMU 03-12 04:09
PROVIDERS: Internal Medicine Interventional Cardiology; Student in an Organized Health Care Education/Training Program; Admitting Provider Internal Medicine; Emergency Provider Registered Nurse; PCP Family Medicine; Visit Provider Nurse Practitioner Acute Care
PROC: 4A023N7 Measurement of Cardiac Sampling and Pressure, Left Heart, Percutaneous Approach (ICD-10-PCS; CPT 93452; principal; 2025-03-12 10:30)
PROC: 4A023N7 Measurement of Cardiac Sampling and Pressure, Left Heart, Percutaneous Approach (ICD-10-PCS; 2025-03-12 10:30)
DX: I21.4 Non-ST elevation (NSTEMI) myocardial infarction (principal); I25.82 Chronic total occlusion of coronary artery; I25.10 Atherosclerotic heart disease of native coronary artery without angina pectoris; I48.0 Paroxysmal atrial fibrillation; I10 Essential (primary) hypertension; I73.00 Raynaud's syndrome without gangrene; I87.2 Venous insufficiency (chronic) (peripheral); E78.5 Hyperlipidemia, unspecified; M62.50 Muscle wasting and atrophy, not elsewhere classified, unspecified site; M19.90 Unspecified osteoarthritis, unspecified site; T38.6X Poisoning by, adverse effect of and underdosing of antigonadotrophins, antiestrogens, antiandrogens, not elsewhere classified; J44.9 Chronic obstructive pulmonary disease, unspecified; R00.1 Bradycardia, unspecified; R73.03 Prediabetes; R60.0 Localized edema; G57.10 Meralgia paresthetica, unspecified lower limb; F17.210 Nicotine dependence, cigarettes, uncomplicated; F10.90 Alcohol use, unspecified, uncomplicated; Z20.822 Contact with and (suspected) exposure to COVID-19; Z79.01 Long term (current) use of anticoagulants; Z79.82 Long term (current) use of aspirin; Z95.1 Presence of aortocoronary bypass graft; Z85.46 Personal history of malignant neoplasm of prostate; Z85.038 Personal history of other malignant neoplasm of large intestine; Z85.828 Personal history of other malignant neoplasm of skin; Z86.11 Personal history of tuberculosis; Z86.79 Personal history of other diseases of the circulatory system; Z95.5 Presence of coronary angioplasty implant and graft
CPT/HCPCS: 36415; 71045; 80048; 80053; 80061; 83036; 83690; 83880; 84443; 84484; 85025; 85380; 85610; 85730; 87637; 92920; 93005; 93306; 93458; 96374; 99285; A9270; C1769; C1887; C1894; J1644; J2250; J2270; J3010